=== PATIENT | female | born 1960 | race Caucasian/White ===

== ENCOUNTER 2022-08-11 11:26 | Outpatient (CLI) | payer BC, SELFPAY ==
[2022-08-11 11:03] LABS: Chloride* 102 mmol/L (96-114); Potassium* 4.2 mmol/L (3.6-5.1); Sodium* 138 mmol/L (135-149)
[2022-08-11 11:06] LABS: Blood Urea Nitrogen* 16 mg/dL (7-30); Carbon Dioxide* 29 mmol/L (20-32); Cholesterol* 182 mg/dL (90-199); Creatinine* 1.1 mg/dL (0.5-1.5); Estimated Glomerular Filt Rate 56 ml/min
[2022-08-11 11:07] LABS: Calcium* 9.1 mg/dL (8.4-10.6); Glucose* 96 mg/dL (60-115); HDL Cholesterol* 58 mg/dL (>=50); LDL Cholesterol Calculated 111 mg/dL (<100); Triglycerides* 67 mg/dL (40-149)
== END 2022-08-11 11:27 | disposition home or self-care (01) ==
PROVIDERS: PCP Internal Medicine; Visit Provider Internal Medicine
DX: E78.5 Hyperlipidemia, unspecified (principal); E21.3 Hyperparathyroidism, unspecified; E66.9 Obesity, unspecified; Z79.01 Long term (current) use of anticoagulants
CPT/HCPCS: 80048; 80061; 82310; 83970

== ENCOUNTER 2022-08-17 15:52 | Outpatient (CLI) | payer BC, SELFPAY ==
[2022-08-17 10:05] LABS: Creatinine Urine 91.1 mg/dL
[2022-08-17 10:08] LABS: Microalbumin Creatinine Ratio 10 mg/g (0-30); Microalbumin Urine < 1 mg/dL
[2022-08-17 10:53] LABS: Albumin* 3.8 g/dL (3.3-5.0)
[2022-08-17 10:54] LABS: Chloride* 101 mmol/L (96-114); Potassium* 3.9 mmol/L (3.6-5.1); Sodium* 137 mmol/L (135-149)
[2022-08-17 10:56] LABS: Aspartate Amino Transferase* 26 U/L (12-35); Blood Urea Nitrogen* 16 mg/dL (7-30); Carbon Dioxide* 31 mmol/L (20-32); Cholesterol* 177 mg/dL (90-199); Creatinine* 1.1 mg/dL (0.5-1.5); Estimated Glomerular Filt Rate 56 ml/min
[2022-08-17 10:57] LABS: Alanine Aminotransferase* 25 U/L (4-35); Calcium* 9.3 mg/dL (8.4-10.6); Glucose* 103 mg/dL (60-115); HDL Cholesterol* 56 mg/dL (>=50); LDL Cholesterol Calculated 101 mg/dL (<100); Phosphorus* 3.4 mg/dL (2.5-4.5); Triglycerides* 98 mg/dL (40-149); Uric Acid* 4.6 mg/dL (2.2-8.4)
[2022-08-20 06:28] LABS: 25-Hydroxyvitamin D2 < 1.0 ng/mL; 25-Hydroxyvitamin D2,D3 Total 29.5 ng/mL (30.0-80.0); 25-Hydroxyvitamin D3 29.5 ng/mL
[2022-08-26 16:39] LABS: Hours Collected 24 hr; Total Volume 2800 mL; Urine Supersaturation Interp Normal; pH, Urine 6.87 (5.00-7.50)
== END 2022-08-17 15:53 | disposition home or self-care (01) ==
PROVIDERS: PCP Internal Medicine; Visit Provider Internal Medicine Nephrology
DX: E21.3 Hyperparathyroidism, unspecified (principal); E78.5 Hyperlipidemia, unspecified; N20.9 Urinary calculus, unspecified; E66.9 Obesity, unspecified; N18.30 Chronic kidney disease, stage 3 unspecified; Z79.01 Long term (current) use of anticoagulants
CPT/HCPCS: 80061; 80069; 82043; 82306; 82310; 82340; 82436; 82507; 82570; 83735; 83945; 83970; 83986; 84105; 84133; 84300; 84392; 84450; 84460; 84550; 84560

== ENCOUNTER 2023-03-02 08:30 | Outpatient (CLI) | payer BC, SELFPAY | END 2023-03-02 08:31 | disposition home or self-care (01) | LOC: NFLDREF 03-03 09:15 | PROVIDERS: PCP Internal Medicine; Referring Provider Internal Medicine; Visit Provider Internal Medicine Nephrology | DX: E21.3 Hyperparathyroidism, unspecified (principal); E78.5 Hyperlipidemia, unspecified; N18.30 Chronic kidney disease, stage 3 unspecified; N20.9 Urinary calculus, unspecified | CPT/HCPCS: 80061; 80069; 82043; 82310; 82340; 82436; 82507; 82570; 83735; 83945; 83970; 83986; 84105; 84133; 84300; 84392; 84443; 84550; 84560 ==

== ENCOUNTER 2023-08-04 09:09 | Outpatient (CLI) | payer BC, SELFPAY | END 2023-08-04 09:10 | disposition home or self-care (01) | LOC: NFLDREF 08-13 11:31 | PROVIDERS: PCP Internal Medicine; Referring Provider Internal Medicine; Visit Provider Internal Medicine Nephrology | DX: E21.3 Hyperparathyroidism, unspecified (principal); E78.5 Hyperlipidemia, unspecified; N18.30 Chronic kidney disease, stage 3 unspecified; N20.9 Urinary calculus, unspecified; M81.0 Age-related osteoporosis without current pathological fracture | CPT/HCPCS: 80061; 80069; 82043; 82306; 82310; 82340; 82436; 82507; 82570; 83735; 83945; 83970; 83986; 84105; 84133; 84300; 84392; 84450; 84460; 84550; 84560 ==

== ENCOUNTER 2023-10-25 08:29 | Outpatient (CLI) | payer BC, SELFPAY | END 2023-10-25 08:30 | disposition home or self-care (01) | LOC: NFLDREF 10-27 07:20 | PROVIDERS: PCP Internal Medicine; Referring Provider Internal Medicine; Visit Provider Internal Medicine | DX: E78.5 Hyperlipidemia, unspecified (principal) | CPT/HCPCS: 80061 ==

== ENCOUNTER 2023-11-29 10:10 | Outpatient (CLI) | payer BC, SELFPAY ==
--- OUTSIDE RECORDS SUMMARY | 2023-12-01 06:34 | XMS_ITS | Referral Summary ---
Author Name Unknown Organization [facility] Address [address] [place] [address] Care Team Providers Care Industrial Eng Name Role Phone Unavailable Primary Care Provider Unavailabl e Source Comments Patient records contain information from all sites at [facility]. For routine questions regarding patient records, call [phone] during business hours, M-F 8:00 AM - 5:00 PM Central Time. Record requests for emergency care only can be directed to [phone] at any time.[facility] Encounters Date Type Department Care Team Description 09/29/2023 Refill Division of Nephrology and Hypertension in [place], [place] [address] [place] [address] Angel Zhu Jr., D.O. Med Refill 09/01/2023 Refill Division of Nephrology and Hypertension in [place], [place] [address] [place] [address] Angel Zhu Jr., D.O. Med Refill 08/31/2023 8:00 AM CDT External Outreach Division of Nephrology and Hypertension in [place], [place] [address] [place] [address] Angel Zhu Jr., D.O. Urolithiasis (Primary Dx); Hyperparathyroidism (HCC); Mutation Factor V Leiden Heterozygous (HCC); Elevated Blood Pressure from Last 3 Months Allergies Active Allergy Reactions Criticality Noted Date Comments Aspirin Other (see comments) 02/02/2019 On Blood thinner Ibuprofen Other (see comments) 12/10/2015 Kidney disease Ketorolac Other (see comments) 11/25/2015 KIdney disease Naproxen Other (see comments) 12/26/2015 Kidney dx Medications Medication Sig Dispensed Refills Start Date End Date Status cyanocobalamin (VITAMIN B12) 500 mcg SL tablet Take 1 tablet (500 mcg total) by mouth daily. 0 11/09/2018 Active cholecalciferol (VITAMIN D3) 50 mcg (2,000 Unit) tablet Take 2,000 Units by mouth daily. Wednesday, Wednesday, , Wednesday 0 Active Eliquis 5 mg tablet Take 5 mg by mouth 2 (two) times a day. 0 08/12/2021 Active atorvastatin (LIPITOR) 40 mg tablet TAKE ONE TABLET BY MOUTH AT BEDTIME 90 tablet 3 07/24/2022 Active acetaminophen (TYLENOL) 500 mg tablet Take 1,000 mg by mouth every 6 (six) hours as needed for pain. 0 Active oxyCODONE (ROXICODONE) 5 mg immediate release tabletIndications: Acute Pain Take 1 tablet (5 mg total) by mouth every 6 (six) hours as needed for pain Indication: Acute Pain. Not relieved by over the counter pain medications. 10 tablet 0 01/26/2023 Active sennosides-docusat e sodium (SENOKOT-S) 8.6-50 mg per tablet Take 1 tablet by mouth 2 (two) times a day as needed for constipation. While on narcotics. 0 01/26/2023 Active enoxaparin (LOVENOX) 40 mg/0.4 mL injection Inject 0.4 mL (40 mg total) under the skin daily for 3 days. 1.2 mL 0 01/26/2023 Active estradioL (VAGIFEM) 10 mcg vaginal tablet Insert 1 tablet into the vagina 2 times a week. 64 tablet 0 07/08/2023 02/06/2024 Active calcitRIOL (ROCALTROL) 0.25 mcg capsuleIndications :Hyperparathyroidi sm (HCC) TAKE 1 CAPSULE BY MOUTH EVERY WEDNESDAY, WEDNESDAY AND WEDNESDAY. 40 capsule 0 09/29/2023 Active Active Problems Problem Noted Date Diagnosed Date Elevated Blood Pressure 08/31/2023 Other Ovarian Cyst Left Side 11/18/2022 Overview: Added automatically from request for surgery [id number] Hypokalemia 09/01/2022 Urolithiasis 09/30/2021 Hydronephrosis With Renal An d Ureteral Calculous Obstruction 09/30/2021 Leukopenia 05/10/2019 Preanesthesia Medical Pretransplant Exam 019 Hyperparathyroidism 09/28/2018 Mutation Factor V Leiden Heterozygous 09/28/2018 Osteoporosis 04/18/2018 Arthritis Hip 12/10/2015 Hyperlipidemia 09/21/2010 Resolved Problems Problem Noted Date Diagnosed Date Resolved Date Leukopenia 03/15/2023 03/15/2023 Immunizations Name Administration Dates Next Due Influenza TIV (IM) 09/20/2012, 1,11/01/2006,2003 Influenza, Injectable, Quadrivalent 09/03/2015 Influenza, Seasonal, Injectable 09/20/20 12,09/17/2011,11/01/2006,2003 Influenza, Unspecified 08/02/2020 RZV (SHINGRIX) 12/04/2021,08/18/2021 SARS-COV-2 (COVID-19) - MODERNA 02/22/2021,01/25 Td (Adult), adsorbed 03/21/1998 Td Preservative Free (TENIVA C, DECAVAC) 08/02/2020 Tdap 03/05/2009 influenza vaccine QV(FLUBLOK ) (18 years or older) (PF) 08/02/2020,10/21/2018 influenza vaccine quad (FLUZONE/FLUARIX) (6 months and older)(PF) 10/29/2022,09/02/2021,10/13/2019,2016,10/06/2016 Social History Tobacco Use Types Packs/Day Years Used Date Smoking Tobacco: Former Cigarettes 0 8 0 07/23/1975 - 11/22/1982 Smokeless Tobacco: Never Tobacco Cessation:Counseling Given: Not Answered Alcohol Use Standard Drinks/Week Comments Yes 0 (1 standard drink = 0.6 oz pur e alcohol) maybe 5 times a year Humiliation, Afraid, Rape, and Kick questionnair e Answer Date Recorded Within the last year, have y ou been afraid of your partner or ex-partner? No 10/30/2022 Within the last year, have y ou been humiliated or emotionally abused in other ways by your partner or ex-partner? Patient declined 10/30/2022 Within the last year, have y ou been kicked, hit, slapped, or otherwise physically hurt by your partner or ex-partner? Patient declined 10/30/2022 Within the last year, have y ou been raped or forced to have any kind of sexual activity by your partner or ex-partner? No 10/30/2022 Social Connection and Isolation Panel [NHANES] A nswer Date Recorded In a typical week, how many times do you talk on the phone with family, friends, or neighbors? Patient declined 10/30/2022 How often do you get togethe r with friends or relatives? Patient declined 10/30/2022 How often do you attend yazidi or zoroastrianism serv ices? Patient declined 10/30/2022 Do you belong to any clubs o r organizations such as yazidi groups, unions, fraternal or athletic groups, or school groups? Yes 10/30/2022 How often do you attend meet ings of the clubs or organizations you belong to? Patient declined 10/30/2022 Are you , , di vorced, , never , or living with a partner? Patient declined 10/30/2022 AUDIT-C Answer Date Recorded Q1: How often do you have a drink containing alc ohol? Patient declined 10/30/2022 Average Number of Drinks Not on file 022 Frequency of Binge Drinking Not on file 07/2022 Overall Financial Resource Strain (CARDIA) Answe r Date Recorded How hard is it for you to pa y for the very basics like food, housing, medical care, and heating? Not hard at all 10/30/2022 [facility] of Occupat ional Health - Occupational Stress Questionnaire Answer Date Recorded Do you feel stress - tense, restless, nervous, or anxious, or unable to sleep at night because your mind is troubled all the time - these days? Not at all 10/30/2022 Exercise Vital Sign Answer Date Recorde d On average, how many days pe r week do you engage in moderate to strenuous exercise (like a brisk walk)? 0 days On average, how many minutes do you engage in exercise at this level? Patient declined 10/30/2022 Hunger Vital Sign Answer Date Recorded Within the past 12 months, y ou worried that your food would run out before you got the money to buy more. Patient declined Within the past 12 months, t he food you bought just didn't last and you didn't have money to get more. Patient declined 07/2022 PRAPARE - Transportation Answer Date Re corded In the past 12 months, has l ack of transportation kept you from medical appointments or from getting medications? Patient declined 10/30/2022 In the past 12 months, has l ack of transportation kept you from meetings, work, or from getting things needed for daily living? Patient declined 10/30/2022 Housing Stability Vital Sign Answer Phong e Recorded In the last 12 months, was t here a time when you were not able to pay the mortgage or rent on time? No 10/30/20 In the last 12 months, how many places have you lived? 1 10/30/2022 In the last 12 months, was t here a time when you did not have a steady place to sleep or slept in a nursing home (including now)? Patient refused 10/30/2022 Nutrition Answer Date Recorded Nutrition: EVOO Fat Source No 10/30 On average, how many serving s of fruits and vegetables do you eat per day (serving size is equal to 1 cup or approximately the size of a tennis ball)? 0-1 10/30/2022 Dental Answer Date Recorded Dental: Regular Dentist Yes 10/30/20 Employment Answer Date Recorded Employment status Retired 10/30/2022 Sex and Gender Information Value Date Recorded Sex Assigned at Female 12/09/2018 8:53 AM AUTOMOTIVE WORKER Gender Identity Female 12/09/2018 8:53 AM AUTOMOTIVE WORKER Sexual Orientation Straight 12/09/2018 8: 53 AM AUTOMOTIVE WORKER Last Filed Vital Signs Vital Sign Reading Time Taken Comments Blood Pressure 148/82 08/31/2023 8:11 AM CDT Pulse 71 08/31/2023 8:11 AM CDT Temperature 36.7 ??C (98.1 ??F) 01/26/2023 2:53 PM CS T Respiratory Rate 16 01/26/2023 4:40 PM AUTOMOTIVE WORKER Oxygen Saturation 94% 01/26/2023 4:40 PM AUTOMOTIVE WORKER Inhaled Oxygen Concentration - - Weight 114 kg (251 lb 15.8 oz) 08/31/2023 8:11 A M CDT Height 165 cm (5' 4.96) 03/15/2023 2:23 PM CDT Body Mass Index 41.98 03/15/2023 2:23 PM CDT Plan of Treatment Not on file Medical Devices Implanted Type Area Wrapper Stripper Device Identifier Shelf Expiration Date Model / Serial / Lot Hip Implant Hip Implant Bilateral : Hip Advance Directives For more information, please contact: [phone] Latest Code Status on File Code Status Date Activated Date Inactivated Comments Full Code 01/26/2023 8:36 AM 01/26/2023 6:49 PM Question Answer Comments Full Code: Discussed Code Status History Code Status Date Activated Date Inactivated Comments Full Code 02/02/2019 7:58 AM 02/02/2019 5:42 PM Question Answer Comments Full Code: Discussed
--- OUTSIDE RECORDS SUMMARY | 2023-12-01 06:34 | XMS_ITS | Encounter Summary ---
Author Name Unknown Organization [facility] Address [address] [place] [address] Care Team Providers Care Van Driver Name Role Phone Unavailable Primary Care Provider Unavailabl e Reason for Visit * Reason Comments Med Refill Encounter Details Date Type Department Care Team (Late st Contact Info) Description 09/29/2023 Refill Division of Nephrology and Hypertension in [place], [place] [address] [place] [address] Angel Zhu Jr., D.O. [address] [place] [address] Med Refill Social History Tobacco Use Types Packs/Day Years Used Date Smoking Tobacco: Former Cigarettes 0 8 0 07/23/1975 - 11/22/1982 Smokeless Tobacco: Never Alcohol Use Standard Drinks/Week Comments Yes 0 [...] declined 10/30/2022 How often do you attend latter-day or mandaen serv ices? Patient declined 10/30/2022 Do you belong to any clubs o r organizations such as latter-day groups, unions, fraternal or athletic groups, or [...] and heating? Not hard at all 10/30/2022 [facility] of Occupat ional Health - Occupational Stress [...] place to sleep or slept in a intermediate (including now)? Patient refused 10/30/2022 Nutrition Answer [...] Sex Assigned at Female 12/09/2018 8:53 AM COUNTER CHECKER Gender Identity Female 12/09/2018 8:53 AM COUNTER CHECKER Sexual Orientation Straight 12/09/2018 8: 53 AM COUNTER CHECKER documented as of this encounter Plan of Treatment Not on file documented as of this encounter Visit Diagnoses Diagnosis Hyperparathyroidism (HCC) documented in this encounter
--- OUTSIDE RECORDS SUMMARY | 2023-12-01 06:34 | XMS_ITS ---
Author Name Unknown Organization [facility] Address [address] [place] [address] Care Team Providers Care Nursery Laborer Name Role Phone Unavailable Unavailable Unavailable Surgery Details Not on file Complications Check Surgery Details section. Procedure Estimated Blood Loss Check Surgery Details section. Procedure Findings Check Surgery Details section. Procedure Specimens Taken Check Surgery Details section.
--- OUTSIDE RECORDS SUMMARY | 2023-12-01 06:34 | XMS_ITS | Clinical Summary ---
Author Name Unknown Organization [facility] Address [address] [place] [address] Care Team Providers Care Chapter Relations Administrator Name Role Phone Unavailable Primary Care Provider Unavailabl e Source Comments Patient records contain information from all sites at [facility]. For routine questions regarding patient records, call [phone] during business hours, M-F 8:00 AM - 5:00 PM Central Time. Record requests for emergency care only can be directed to [phone] at any time.[facility] Allergies Active Allergy Reactions Criticality Noted Date [...] Overview: Added automatically from request for surgery [id number] Hypokalemia 09/01/2022 Urolithiasis 09/30/2021 Hydronephrosis With Renal An d Ureteral Calculous Obstruction 09/30/2021 Leukopenia 05/10/2019 Preanesthesia Medical Pretransplant Exam 019 Hyperparathyroidism 09/28/2018 Mutation Factor V Leiden Heterozygous 09/28/2018 Osteoporosis 04/18/2018 Arthritis Hip 12/10/2015 Hyperlipidemia 09/21/2010 Resolved Problems Problem Noted Date Diagnosed Date Resolved Date Leukopenia 03/15/2023 03/15/2023 Encounters Date Type Department Care Team Description 09/29/2023 Refill Division of Nephrology and Hypertension in [place], [place] [address] [place] [address] Angel Zhu Jr., D.O. Med Refill 09/01/2023 Refill Division of Nephrology and Hypertension in [place], [place] [address] [place] [address] Angel Zhu Jr., D.O. Med Refill 08/31/2023 8:00 AM CDT External Outreach Division of Nephrology and Hypertension in [place], [place] [address] [place] [address] Angel Zhu Jr., D.O. Urolithiasis (Primary Dx); Hyperparathyroidism (HCC); Mutation Factor V Leiden Heterozygous (HCC); Elevated Blood Pressure from Last 3 Months Immunizations Name Administration Dates Next Due Influenza TIV (IM) 09/20/2012, 1,11/01/2006,2003 Influenza, Injectable, Quadrivalent 09/03/2015 Influenza, Seasonal, Injectable 09/20/20 12,09/17/2011,11/01/2006,2003 Influenza, Unspecified 08/02/2020 RZV (SHINGRIX) 12/04/2021,08/18/2021 SARS-COV-2 (COVID-19) - MODERNA 02/22/2021,01/25 Td (Adult), adsorbed 03/21/1998 Td Preservative Free (TENIVA C, DECAVAC) 08/02/2020 Tdap 03/05/2009 influenza vaccine QV(FLUBLOK ) (18 years or older) (PF) 08/02/2020,10/21/2018 influenza vaccine quad (FLUZONE/FLUARIX) (6 months and older)(PF) 10/29/2022,09/02/2021,10/13/2019,2016,10/06/2016 Family History Medical History Relation Name Comments Clotting disorder Father Franklyn Colon polyps Father Franklyn Hyperlipidemia Father Franklyn Hypertension Father Franklyn Stroke Father Franklyn Transient ischemic attack Father Franklyn Tuberculosis Father Franklyn Obesity Mother Mom Ovarian cancer Sister 1 Clotting disorder Sister 2 Loree Colon polyps Sister 2 Loree Hyperlipidemia Sister 2 Loree Ovarian cancer Sister 2 Loree 60 years of a ge Relation Name Status Comments Father Franklyn Mother Mom Sister 1 Sister 2 Loree Social History Tobacco Use Types Packs/Day Years [...] declined 10/30/2022 How often do you attend episcopalian or restorationism serv ices? Patient declined 10/30/2022 Do you belong to any clubs o r organizations such as episcopalian groups, unions, fraternal or athletic groups, or [...] and heating? Not hard at all 10/30/2022 [facility] [place] of Occupat ional Health - Occupational Stress [...] mortgage or rent on time? No 10/30/20 22 In the last 12 months, how many places have you lived? 1 10/30/2022 In the last 12 months, was t here a time when you did not have a steady place to sleep or slept in a fpc (including now)? Patient refused 10/30/2022 Nutrition Answer [...] Sex Assigned at Female 12/09/2018 8:53 AM RECLAMATION KETTLE TENDER Gender Identity Female 12/09/2018 8:53 AM RECLAMATION KETTLE TENDER Sexual Orientation Straight 12/09/2018 8: 53 AM RECLAMATION KETTLE TENDER Last Filed Vital Signs Vital Sign Reading Time Taken Comments Blood Pressure 148/82 08/31/2023 8:11 AM CDT Pulse 71 08/31/2023 8:11 AM CDT Temperature 36.7 ??C (98.1 ??F) 01/26/2023 2:53 PM CS T Respiratory Rate 16 01/26/2023 4:40 PM RECLAMATION KETTLE TENDER Oxygen Saturation 94% 01/26/2023 4:40 PM RECLAMATION KETTLE TENDER Inhaled Oxygen Concentration - - Weight 114 kg (251 lb 15.8 oz) 08/31/2023 8:11 A M CDT Height 165 cm (5' 4.96) 03/15/2023 2:23 PM CDT Body Mass Index 41.98 03/15/2023 2:23 PM CDT Plan of Treatment Health Maintenance Due Date Last Done Comments CT Colonography 1959 Cologuard 1959 Colonoscopy 1959 Colorectal Cancer Surveillance 1960 HIV Screening 1959 Hepatitis C Screening 1959 Mammogram 1959 Cervical Cancer Screening 10/21/2021 10/21/2018 Depression Screening (Annual PHQ-2) 11/22/2022 Fasting Glucose for Diabetes Screening 08/08/2023 08/08/2020, 12/09/2018 Lipid (Cholesterol) Screening 08/08/2025 08/08/2020, 06/08/2019 DTaP,Tdap,and Td Vaccines (3 - Td or Tdap) 08/02/2030 08/02/2020, 03/05/2009, 03/21/1998 Zoster Vaccines Completed 12/04/2021, 08/18/2021 Influenza Vaccine Completed 09/16/2023, , 09/02/2021, Additional history exists COVID-19 Vaccine Completed 10/28/2023, 06/2022, 10/17/2021, Additional history exists Pneumococcal vaccine (0-64 years) Aged Out No longer eligible based on patient's age to complete this topic Medical Devices Implanted Type Area Schedule Manager Device Identifier Shelf Expiration Date Model / Serial / Lot Hip Implant Hip Implant Bilateral : Hip Advance Directives For more information, please contact: [phone] Latest Code Status on File Code Status Date Activated Date Inactivated Comments Full Code 01/26/2023 8:36 AM 01/26/2023 6:49 PM Question Answer Comments Full Code: Discussed Code Status History Code Status Date Activated Date Inactivated Comments Full Code 02/02/2019 7:58 AM 02/02/2019 5:42 PM Question Answer Comments Full Code: Discussed
--- OUTSIDE RECORDS SUMMARY | 2023-12-01 06:35 | XMS_ITS | Encounter Summary ---
Author Name Unknown Organization [facility] Address [address] [place] [id number] Care Team Providers [facility] [employer] Team Leader Name Role Phone Unavailable Primary Care Provider Unavailabl e Reason for Visit * Auth/Cert (Routine) Specialty Diagnoses / Procedures Referred By Jazz xiao Referred To Contact Diagnoses Other Ovarian Cyst Left Side Other Ovarian Cyst Left Side [N83.292] Procedures [place] LAPAROSCOPY W RMVL ADNEXA OPERATIVE LAPAROSCOPY LAPAROSCOPIC SALPINGO-OOPHORECTOMY Referral ID Status Reason Start Date Expiration Date Visits Re quested Visits Authorized [id number] 1 1 Encounter Details Date Type Department Care Team (Late st Contact Info) Description 01/26/2023 10:54 AM DAIRY DEPARTMENT MANAGER Anesthesia Event [facility] [address] [place] [phone] Taras Gomez M.D. [address] [place] [phone] Leigh Pérez, RChrisNChris [address] [place] [phone] Anesthesia Record Procedure Summary Procedure Name Responsible Anesthesiologist Anesthesia Start Time Anesthesia Stop Time OPERATIVE LAPAROSCOPY. Taras Gomez M.D. 01/26/23 1054 01/26/23 1336 Events Date Time Event Comment 01/26/2023 1027 1054 An Start Machine/Equipme nt Checked Infection Precautions Followed Procedure/Site Verified NPO Status Verified Supine Standard ASA Monitors Applied 1100 An Induction 1102 An Intubation 1105 Turnover to Proceduralist 1142 Proc Start 1152 Gas Insufflation 1156 Gas Insufflation 1258 Proc Fin 1315 Turnover to ANE Staff 1322 Airway Removal Criteria Met 1323 Extubation/Airway Removed 1323 an stop data 1336 An End I completed my handoff to the receiving staff during which we 1. Identified the patient 2. Identified the responsible provider 3. Reviewed the pertinent medical history 4. Discussed the surgical course 5. Reviewed intra-op anesthesia management and issues during anesthesia 6. Set expectations for post-procedure period 7. Allowed opportunity for questions and acknowledgement of understanding. Meds Name Total fentanyl injection 50 mcg/mL 150 mcg lidocaine 2% (mg) injection 60 mg propofol 10 mg/mL 240 mg propofol 10 mg/mL infusion 1,456.84 mg rocuronium 10 mg/mL injection 80 mg succinylcholine 20 mg/mL injection 120 m g phenylephrine 100 mcg/mL injection 150 m cg ondansetron 4 mg/2 mL injection 4 mg sugammadex 100 mg/mL injection 260 mg glycopyrrolate 0.2 mg/mL injection 0.4 m g ceFAZolin injection 3,000 mg (ANCEF) 3 g dexamethasone 4 mg/mL injection 4 mg heparin (porcine) injection 7,500 Units 7,500 Units Lactated Ringers Free Drip 1,000 mL * Agents No agents on file. * Blood No blood administrations on file. Lines, Drains, and Airways Type Details Placement Removal Scope Sites 01/26/23; Abdomen; 1 ; Right; 2; Umbilicus; 3; Left, Mid; 4; Left; dermabond 01/26/23 0000 by Dominique Bah, R.N. Indwelling Urinary Catheter Placement Date: 01/26/23; Inserted by: Dominique Bah; Type: Non-latex; Size: 16 Fr.; Balloon Size: 5 mL (10cc in balloon); Urine Returned: Yes; Removal Date: 01/26/23; Removal Time: 1550; Removal Reason: Per order 01/26/23 0000 by Dominique Bah, R.NChris 01/26/23 1550 by Nguyen Yoo Peripheral IV Placement Date: 06/13; Placement Time: 0847; Catheter Size: 18 G; Orientation: Left; Location: Antecubital; Site Prep: Chlorhexidine (Preferred); Inserted by: heb; Insertion Attempts: 1; Removal Date: 01/26/23; Removal Time: 1612; Removal Reason: Per order 01/26/23 0847 by Talisha Watt 01/26/23 1612 by Rubi Alberts ETT Placement Date: 06/13; Placement Time: 110 (created via procedure documentation); Mask Ventilation: Not attempted; Type: Standard ETT; Single Lumen Tube Size: 7 mm; Cuffed: Yes; Location: Oral; Grade View: Grade 1; Insertion Attempts: 1; Placement Verification: Bilateral breath sounds, Positive ETCO2, Symmetrical chest wall movement; Airway Comment: RSI, no aspiration noted, HOB up; Removal Date: 01/26/23; Removal Time: 13201/26/23 1102 by Leigh Pérez R.N. 01/26/23 1323 by Leigh Pérez R.N. NG/OG Tube 01/26/23; 1104; Orogastric; 16 Fr; Oral; 01/26/23; 1322 01/26/23 1104 by Amy Douglas APRN, CRNA 01/26/23 1322 by Leigh Pérez RChrisN. documented in this encounter Social History Tobacco Use Types Packs/Day Years [...] declined 10/30/2022 How often do you attend alevism or adventist serv ices? Patient declined 10/30/2022 Do you belong to any clubs o r organizations such as alevism groups, unions, fraternal or athletic groups, or [...] and heating? Not hard at all 10/30/2022 [facility] - Occupational Stress [...] place to sleep or slept in a halfway (including now)? Patient refused 10/30/2022 Nutrition Answer [...] Sex Assigned at Female 12/09/2018 8:53 AM DAIRY DEPARTMENT MANAGER Gender Identity Female 12/09/2018 8:53 AM DAIRY DEPARTMENT MANAGER Sexual Orientation Straight 12/09/2018 8: 53 AM DAIRY DEPARTMENT MANAGER documented as of this encounter OR Notes * Anesthesia Postprocedure Evaluation - Quentin Rodrigues M.B., B.Ch., B.A.O. - 01/26/2023 2:25 PM CST Patient: Lisset Garza-Turner Procedure Summary Date: 01/26/23 Room / Location: [place] [id number] / [facility] in [place], [place] Anesthesia Start: 1054 Anesthesia Stop: 1336 Procedures: OPERATIVE LAPAROSCOPY. LAPAROSCOPIC SALPINGO-OOPHORECTOMY. (Bilateral) Diagnosis: Other Ovarian Cyst Left Side (Other Ovarian Cyst Left Side [N83.292].) Providers: Cele Bach M.D. Responsible Provider: Taras Gomez M.D. Anesthesia Type: general ASA Status: 3 Anesthesia Type: general Last vitals Vitals Value Taken Time BP 139/85 01/26/23 1415 Temp 36.5 ??C 01/26/23 1330 Pulse 69 01/26/23 1425 Resp 15 01/26/23 1425 SpO2 92 % 01/26/23 1425 Vitals shown include unvalidated device data. Please reference Vitals flowsheet for most recent vital signs. Anesthesia Post Evaluation Patient Disposition: dismissal Cardiovascular status: hemodynamics (HR & BP) acceptable Respiratory status: patent airway with spontaneous effort Temperature: normothermic Oxygen requirements: room air Level of consciousness: awake Pain score: pain adequately controlled and/or at baseline Post Op nausea/vomiting: none Hydration status: euvolemic Y DEPARTMENT MANAGER * Anesthesia Procedure Notes - Leigh Pérez R.N. - 01/26/2023 11:22 AM DAIRY DEPARTMENT MANAGER Associated Order(s): Airway Airway Date/Time: 01/26/2023 11:02 AM Performed by: Leigh Pérez R.N. Authorized by: Taras Gomez M.D. Patient location during procedure: OR / Procedure Area PROCEDURE DETAILS: Mask difficulty assessment: not attempted Final airway type: video laryngoscope Laryngeal Manipulation: no Final best view of glottic structures - Cormack/Lehane Score: grade 1 ETT location: oral VL device: glide scope Ada scope blade size: 3 Adult tube size: 7 Adult ETT distance at teeth/gum: 22 Oral tube type: standard ETT Cuffed: yes Number of attempt to successful placement: 1 Airway confirmation: bilateral breath sounds, positive ETCO2 and bilateral chest rise Additional Comments RSI, no aspiration noted, HOB up PRE PROCEDURE DETAILS: Pre evaluation for airway management: procedure Urgency: elective Preop assessment of probable difficulty: no difficulty anticipated Preoxygenation: bag valve mask SEDATION / ANESTHESIA Anesthesia method: none POST PROCEDURE DETAILS: Procedure outcome: successful Airway event: no complications Y DEPARTMENT MANAGER * Anesthesia Preprocedure Evaluation - Taras Gomez M.D. - 01/26/2023 10:13 AM CST Preprocedure Anesthesia & H&P Assessment Procedure Summary Date/Time: 01/26/23 1017 Procedures: OPERATIVE LAPAROSCOPY. LAPAROSCOPIC SALPINGO-OOPHORECTOMY. (Bilateral) Diagnosis: Other Ovarian Cyst Left Side [N83.292] Pre-op diagnosis: Other Ovarian Cyst Left Side [N83.292]. Location: [address] [facility] / [facility] in [place], [place] Providers: Cele Bach M.D. Pertinent components of the patient's history including current problem list, medical history, surgical history, family history, social history, medications and allergies were reviewed. Present illness and pre-op diagnosis were confirmed. The planned surgery / procedure was verified with the patient / legal guardian. The patient's general health condition remains unchanged RELEVANT COMORBID CONDITIONS GENETICS (+) Hyperlipidemia (+) Hypokalemia Other (+) Arthritis Hip OBJECTIVE PHYSICAL EXAMINATION Airway (HEENT) Mallampati: I TM Distance: >3 FB Neck ROM: Full Mouth Opening: >3 cm Upper Lip Bite Test Class: I Cardiovascular Rhythm: Regular Rate: Normal Cardiovascular Assessment: cardiovascular normal Functional Capacity: >4 METS Pulmonary Pulmonary Assessment: Clear General / Constitutional Constitutional Assessment: Normal General State of Health:: healthy appearing and calm ASSESSMENT / PLAN ANESTHESIA PLAN ASA: 3 Anesthesia Plan: general Patient seen and allergies reviewed, anesthesia plan and risks discussed directly with patient /legal guardian or through an applications coordinator. The use of blood products not discussed Approval to Proceed: approved for anesthesia Y DEPARTMENT MANAGER documented in this encounter Plan of Treatment Not on file documented as of this encounter Procedures Procedure Name Priority Date/Time Associated Diagnosis Comments LDA ANE ENDOTRACHEAL AIRWAY Routine 01/26/2023 11:02 AM DAIRY DEPARTMENT MANAGER documented in this encounter Results * LDA ANE ENDOTRACHEAL AIRWAY (01/26/2023 11:02 AM DAIRY DEPARTMENT MANAGER) Narrative Leigh Pérez R.N. - 01/26/2023 11:02 AM DAIRY DEPARTMENT MANAGER Leigh Pérez R.N. ? 01/26/2023 12:43 PM Airway Date/Time: 01/26/2023 11:02 AM Performed by: Leigh Pérez R.N. Authorized by: Taras Gomez M.D. Patient location during procedure: OR / Procedure Area PROCEDURE DETAILS: Mask difficulty assessment: not attempted Final airway type: video laryngoscope Laryngeal Manipulation: no ?? Final best view of glottic structures - Cormack/Lehane Score: grade 1 ETT location: oral VL device: glide scope Ada scope blade size: 3 Adult tube size: 7 Adult ETT distance at teeth/gum: 22 Oral tube type: standard ETT Cuffed: yes Number of attempt to successful placement: 1 Airway confirmation: bilateral breath sounds, positive ETCO2 and bilateral chest rise Additional Comments RSI, no aspiration noted, HOB up ?? PRE PROCEDURE DETAILS: Pre evaluation for airway management: procedure Urgency: elective Preop assessment of probable difficulty: no difficulty anticipated Preoxygenation: bag valve mask SEDATION / ANESTHESIA Anesthesia method: none POST PROCEDURE DETAILS: ? Procedure outcome: successful ?? Airway event: no complications Taras Gomez M.D. ANESTHESIA ORDERA BLES documented in this encounter Visit Diagnoses Not on filedocumented in this encounter Administered Medications Inactive Administered Medications - up to 3 most recent administrations Medication Order MAR Action Action Date Dose Rate Site ceFAZolin injection 3,000 mg (ANCEF) 3,000 mg (25 mg/kg ? 120 kg Dosing weight), intravenous, Once, On Wed01/26/23 at 1045, For 1 dose, Intra-Op, Preoperatively within 1 hour prior to surgical incision If needed, reconstitute vial per package insert instructions. See IVAG for administration guidelines. , Drug Monitoring Program: Pharmacist to adjust medication dosing based on indication and drug clearance factors., Indications: Prophylaxis, surgical Given 01/26/2023 11:15 AM DAIRY DEPARTMENT MANAGER 3 g dexAMETHasone injection (DECADRON) intravenous, As needed, Starting on Wed01/26/23 at 1116, Anesthesia Intra-op Given 01/26/2023 11:16 AM DAIRY DEPARTMENT MANAGER 4 mg fentaNYL injection (SUBLIMAZE) intravenous, As needed, Starting on Wed01/26/23 at 1100, Anesthesia Intra-op Given 01/26/2023 11:42 AM DAIRY DEPARTMENT MANAGER 50 mcg Given 01/26/2023 11:00 AM DAIRY DEPARTMENT MANAGER 100 mcg glycopyrrolate injection (ROBINUL) intravenous, As needed, Starting on Wed01/26/23 at 1154, Anesthesia Intra-op Given 01/26/2023 11:55 AM DAIRY DEPARTMENT MANAGER 0.2 mg Given 01/26/2023 11:53 AM DAIRY DEPARTMENT MANAGER 0.2 mg heparin (porcine) injection 7,500 Units 7,500 Units, subcutaneous, Once, On Wed01/26/23 at 1045, For 1 dose, Intra-Op, Administer prior to induction of anesthesia. Given 01/26/2023 11:32 AM DAIRY DEPARTMENT MANAGER 7,500 Units lactated ringers intravenous, Continuous Infusion: Per Instructions PRN, Starting on Wed01/26/23 at 1055, Anesthesia Intra-op New Bag 01/26/2023 1:05 PM DAIRY DEPARTMENT MANAGER New Bag 01/26/2023 10:55 AM DAIRY DEPARTMENT MANAGER lidocaine (PF) (cardiac) injection intravenous, As needed, Starting on Wed01/26/23 at 1100, Anesthesia Intra-op Given 01/26/2023 11:00 AM DAIRY DEPARTMENT MANAGER 60 mg ondansetron (PF) injection (ZOFRAN) intravenous, As needed, Starting on Wed01/26/23 at 1244, Anesthesia Intra-op Given 01/26/2023 12:44 PM DAIRY DEPARTMENT MANAGER 4 mg phenylephrine injection intravenous, As needed, Starting on Wed01/26/23 at 1115, Anesthesia Intra-op Given 01/26/2023 12:27 PM DAIRY DEPARTMENT MANAGER 100 mcg Given 01/26/2023 11:15 AM DAIRY DEPARTMENT MANAGER 50 mcg propofol 10 mg/mL infusion (DIPRIVAN) intravenous, Continuous Infusion: Per Instructions PRN, Starting on Wed01/26/23 at 1100, Anesthesia Intra-op Rate/Dose Change 01/26/2023 12:28 PM DAIRY DEPARTMENT MANAGER 50 mcg/kg/min 36.12 mL/hr Rate/Dose Change 01/26/2023 11:55 AM DAIRY DEPARTMENT MANAGER 100 mcg/kg/min 72 .24 mL/hr Rate/Dose Change 01/26/2023 11:47 AM DAIRY DEPARTMENT MANAGER 125 mcg/kg/min 90 .3 mL/hr propofoL injection (DIPRIVAN) intravenous, As needed, Starting on Wed01/26/23 at 1100, Anesthesia Intra-op Given 01/26/2023 11:04 AM DAIRY DEPARTMENT MANAGER 40 mg Given 01/26/2023 11:00 AM DAIRY DEPARTMENT MANAGER 200 mg rocuronium injection (ZEMURON) intravenous, As needed, Starting on Wed01/26/23 at 1104, Anesthesia Intra-op Given 01/26/2023 12:32 PM DAIRY DEPARTMENT MANAGER 10 mg Given 01/26/2023 11:59 AM DAIRY DEPARTMENT MANAGER 20 mg Given 01/26/2023 11:28 AM DAIRY DEPARTMENT MANAGER 20 mg succinylcholine (PF) injection (ANECTINE) intravenous, As needed, Starting on Wed01/26/23 at 1100, Anesthesia Intra-op Given 01/26/2023 11:00 AM DAIRY DEPARTMENT MANAGER 120 mg sugammadex injection (BRIDION) intravenous, As needed, Starting on Wed01/26/23 at 1310, Anesthesia Intra-op Given 01/26/2023 1:10 PM DAIRY DEPARTMENT MANAGER 260 mg documented in this encounter
--- OUTSIDE RECORDS SUMMARY | 2023-12-01 06:35 | XMS_ITS | Encounter Summary ---
Author Name Unknown Organization [facility] Address [address] [place] [address] Care Team Providers Care Balance Wheel Arm Burnisher Name Role Phone Unavailable Primary Care Provider Unavailabl e Reason for Visit * Auth/Cert (Routine) Specialty Diagnoses / Procedures Referred By Jazz xiao Referred To Contact Diagnoses Other Ovarian Cyst Left Side Other Ovarian Cyst Left Side [N83.292] Procedures [place] LAPAROSCOPY W RMVL ADNEXA OPERATIVE LAPAROSCOPY LAPAROSCOPIC SALPINGO-OOPHORECTOMY Referral ID Status Reason Start Date Expiration Date Visits Re quested Visits Authorized [id number] 1 1 Encounter Details Date Type Department Care Team (Latest Contact Info) Description 01/26/2023 8:31 AM TOOL DISPATCHER - 01/26/2023 4:48 PM TOOL DISPATCHER Hospital Encounter Outpatient Surgery Unit in [place], [place] [address] [place] [address] Cele Bach M.D. [address] [place] [address] Other Ovarian Cyst Left Side; Other Ovarian Cyst Left Side Discharge Disposition: Home or Self Care Social History Tobacco Use Types Packs/Day Years [...] declined 10/30/2022 How often do you attend baptism or taoist serv ices? Patient declined 10/30/2022 Do you belong to any clubs o r organizations such as baptism groups, unions, fraternal or athletic groups, or [...] and heating? Not hard at all 10/30/2022 [facility] Occupat ional Health - Occupational Stress [...] place to sleep or slept in a care home (including now)? Patient refused 10/30/2022 Nutrition [...] Sex Assigned at Female 12/09/2018 8:53 AM TOOL DISPATCHER Gender Identity Female 12/09/2018 8:53 AM TOOL DISPATCHER Sexual Orientation Straight 12/09/2018 8: 53 AM TOOL DISPATCHER documented as of this encounter Last Filed Vital Signs Vital Sign Reading Time Taken Comments Blood Pressure 137/85 01/26/2023 4:40 PM TOOL DISPATCHER Pulse 80 01/26/2023 4:40 PM TOOL DISPATCHER Temperature 36.7 ??C (98.1 ??F) 01/26/2023 2:53 PM CS T Respiratory Rate 16 01/26/2023 4:40 PM TOOL DISPATCHER Oxygen Saturation 94% 01/26/2023 4:40 PM TOOL DISPATCHER Inhaled Oxygen Concentration - - Weight 120 kg (265 lb 6.9 oz) 01/26/2023 9:08 AM TOOL DISPATCHER Height 161 cm (5' 3.39) 01/26/2023 9:08 AM TOOL DISPATCHER Body Mass Index 46.45 01/26/2023 9:08 AM TOOL DISPATCHER documented in this encounter Discharge Instructions * Attachments The following attachments cannot be sent through Care Everywhere. * Your Scopolamine Patch (Cypriot) documented in this encounter Medications at Time of Discharge Medication Sig Dispensed Refills Start Date End Date acetaminophen (TYLENOL) 500 mg tablet Take 1,000 mg by mouth every 6 (six) hours as needed for pain. 0 atorvastatin (LIPITOR) 40 mg tablet TAKE ONE TABLET BY MOUTH AT BEDTIME 90 tablet 3 07/24/2022 cholecalciferol (VITAMIN D3) 50 mcg (2,000 Unit) tablet Take 2,000 Units by mouth daily. Wednesday, Wednesday, , Wednesday 0 cyanocobalamin (VITAMIN B12) 500 mcg SL tablet Take 1 tablet (500 mcg total) by mouth daily. 0 11/09/2018 Eliquis 5 mg tablet Take 5 mg by mouth 2 (two) times a day. 0 08/12/2021 enoxaparin (LOVENOX) 40 mg/0.4 mL injection Inject 0.4 mL (40 mg total) under the skin daily for 3 days. 1.2 mL 0 01/26/2023 oxyCODONE (ROXICODONE) 5 mg immediate release tabletIndications:Acut e Pain Take 1 tablet (5 mg total) by mouth every 6 (six) hours as needed for pain Indication: Acute Pain. Not relieved by over the counter pain medications. 10 tablet 0 01/26/2023 sennosides-docusate sodium (SENOKOT-S) 8.6-50 mg per tablet Take 1 tablet by mouth 2 (two) times a day as needed for constipation. While on narcotics. 0 01/26/2023 calcitRIOL (ROCALTROL) 0.25 mcg capsuleIndications:Hyp erparathyroidism (HCC) TAKE 1 CAPSULE BY MOUTH EVERY WEDNESDAY, WEDNESDAY AND WEDNESDAY. 40 capsule 3 01/23/2022 02/09/2023 estradioL (VAGIFEM) 10 mcg vaginal tablet Insert 1 tablet (10 mcg total) into the vagina 2 (two) times a week. 24 tablet 3 02/12/2022 03/31/2023 documented as of this encounter OR Notes * Op Note - Cele Bach M.D. - 01/26/2023 11:42 AM CST Pre-op Diagnosis Other Ovarian Cyst Left Side Post-op Diagnosis Other Ovarian Cyst Left Side Findings Simple left paratubal cyst and normal bilateral ovaries Complications None Description of Procedure The patient was prepped and draped in the supine position. After sterile prep and drape, a 10-mm periumbilical skin incision was made and carried through the fascia using an open laparoscopic technique. A 10-mm Mary trocar was placed and pneumoperitoneum created. We visually inspected the pelvis and abdomen which revealed a normal abdomen and a left simple cyst that appeared to be coming off of the fallopian tube. Under direct vision, bilateral 5-mm ports and a left paramedian port were then placed. We began with the right adnexal structures. We divided the right round ligament and entered the retroperitoneum laterally, identified the ureter, and ligated and divided the blood supply to the ovaries using the LigaSure We then completely dissected the right adnexal structures off of the peritoneum and ligated and divided the utero-ovarian ligament. The same procedure was performed on the left side. The adnexal structures (bilateral tubes and ovaries) were retrieved from the pelvis using an Endobag. Frozen section revealed benign findings, and the procedure was terminated. Hemostasis was confirmed and all ports removed. The periumbilical incision was closed with running 1-0 Vicryl. All skin incisions were closed with subcuticular 3-0 Monocryl. The patient was taken to recovery in stable condition. Cele Bach M.D. DISPATCHER documented in this encounter Plan of Treatment Not on file documented as of this encounter Procedures Procedure Name Priority Date/Time Associated Diagnosis Comments ADULT OXYGEN THERAPY Routine 01/26/2023 1:37 PM TOOL DISPATCHER SURGICAL PATHOLOGY, [facility] LAB Routine 01/26/2023 12:20 PM TOOL DISPATCHER Other Ovarian Cyst Left Side LAPAROSCOPIC SALPINGO-OOPHORECTOMY 01/26/2023 10:24 AM TOOL DISPATCHER Other Ovarian Cyst Left Side OPERATIVE LAPAROSCOPY 01/26/2023 10:24 AM TOOL DISPATCHER Other Ovarian Cyst Left Side documented in this encounter Results * Surgical Pathology, [facility]zen Lab (01/26/2023 12:20 PM TOOL DISPATCHER) 01/28/2023 2:24 PM TOOL DISPATCHER METH Participated in the Interpretation Jeanette Bolaños M.D. -Pathology Fellow Yuko ManleyS. -Pathology Resident 01/28/2023 2:24 PM TOOL DISPATCHER METH Report electronically signed by Annette Kerr M.D. I verify that I have examined all relevant slides/materi als for the specimen(s) and rendered or confirmed the diagnosis. 01/28/2023 2:24 PM TOOL DISPATCHER METH Frozen Intraoperative Report A. ??Fallopian tube and ovary, left, salpingo-ooph orectomy: Serous cystadenofibr vanna. ??Paratubal cyst. ??Benign fallopian tube. B. ??Fallopian tube and ovary, right, salpingo-ooph orectomy: Serous cystadenofibr vanna. ??Benign fallopian tube. Signed by Annette Kerr M.D. 01/26/2023 3:55 PM 01/28/2023 2:24 PM TOOL DISPATCHER METH Gross Description A. ??Received fresh labeled left fallopian tube and left ovary is a 24.8 gram, 4 x 2 x 1.0 cm ovary with 4.5 x 0.6 cm fallopian tube. ??The ovary has a smooth outer surface and solid cut surface. ??The fallopian tube has multiple paratubal cysts. ??Representat toni tissue submitted for frozen and permanent sections. ??Grossed by Margoth ChapaH.Jami, PA([facility]). B. ??Received fresh labeled right fallopian tube and right ovary is a 14.3 gram, 2.9 x 2.6 x 2.2 cm ovary with 7.2 x 0.8 cm fallopian tube. ??The ovary has a smooth outer surface and cystic/calcif ied cut surface. ??The fallopian tube has a 0.3 cm paratubal cyst. ??Representat toni tissue submitted for frozen and permanent sections. ??Grossed by Nicole Waddell M.S., P.A.([facility]). 01/28/2023 2:24 PM TOOL DISPATCHER METH Block Summary A Left fallopian tube and left ovary A1 Left ovary -frozen A2 Left fallopian tube 1 -frozen A3 Left fallopian tube 2 -frozen A4 Left fallopian paratubal cyst -frozen B Right fallopian tube and right ovary B1 Right ovary - frozen B2 Right fallopian tube - frozen B3 Right fimbria - frozen 01/28/2023 2:24 PM TOOL DISPATCHER METH Interpretation FINAL DIAGNOSIS A. ??Fallopian tube and ovary, left, salpingo-ooph orectomy: Hyalinized fibroma. ??Paratubal cyst. ??Benign fallopian tube. B. ??Fallopian tube and ovary, right, salpingo-ooph orectomy: Serous cystadenofibr vanna. ??Benign fallopian tube. 01/28/2023 2:24 PM TOOL DISPATCHER METH Tissue (Ovary, Left) 01/26/2023 12:20 PM TOOL DISPATCHER Tissue (Ovary, Right) 01/26/2023 12:40 PM TOOL DISPATCHER Cele Bach M.D. LAB SURG PATH ORDERA NHAN Performing Organization Address City/State/[facility] Co de Phone Number [place] [address] [place] [address], [facility] METH [facility] [address] [place] [address] documented in this encounter Visit Diagnoses Diagnosis Other Ovarian Cyst Left Side- Primary documented in this encounter Admitting Diagnoses Diagnosis Other Ovarian Cyst Left Side documented in this encounter Administered Medications Inactive Administered Medications - up to 3 most recent administrations Medication Order MAR Action Action Date Dose Rate Site acetaminophen tablet 1,000 mg (TYLENOL) 1,000 mg, oral, Once, On Wed01/26/23 at 1030, For 1 dose, Pre-Op Given 01/26/2023 10:32 AM TOOL DISPATCHER 1,000 mg acetaminophen tablet 1,000 mg (TYLENOL) 1,000 mg, oral, Every 6 hours PRN, mild pain or score 1-3 of 10, Starting on Wed01/26/23 at 1444, not to exceed 4 grams in 24 hours. Given 01/26/2023 4:16 PM TOOL DISPATCHER 1,000 mg aprepitant capsule 40 mg (EMEND) 40 mg, oral, Once, On Wed01/26/23 at 1030, For 1 dose, Pre-Op Given 01/26/2023 10:32 AM TOOL DISPATCHER 40 mg fentaNYL injection 25 mcg (SUBLIMAZE) 25 mcg, intravenous, Every 2 min PRN, For pain 4 or greater (maximum 100 mcg). If max dose of Fentanyl is reached and if pain is greater than 4, discontinue Fentanyl: give Hydromorphone, Starting on Wed01/26/23 at 1336, PACU (only) Given 01/26/2023 1:50 PM TOOL DISPATCHER 25 mcg Given 01/26/2023 1:44 PM TOOL DISPATCHER 25 mcg Given 01/26/2023 1:42 PM TOOL DISPATCHER 25 mcg lactated ringers 20 mL/hr, intravenous, Continuous, Starting on Wed01/26/23 at 1315, PACU & Post-Op Continued from OR 01/26/2023 1:28 PM TOOL DISPATCHER 20 mL/hr 20 mL/hr oxyCODONE IR tablet 10 mg (ROXICODONE) 10 mg, oral, Every 4 hours PRN, severe pain or score 7-10 of 10, Starting on Wed01/26/23 at 1444, Administer if pain is unrelieved by acetaminophen oxyCODONE IR tablet 5 mg (ROXICODONE) 5 mg, oral, Every 4 hours PRN, moderate pain or score 4-6 of 10, Starting on Wed01/26/23 at 1444, Administer if pain is unrelieved by acetaminophen oxyCODONE IR tablet 5 mg (ROXICODONE) 5 mg, oral, Once as needed, For pain 4 or greater, Starting on Wed01/26/23 at 1336, For 1 dose, PACU (only) Given 01/26/2023 1:46 PM TOOL DISPATCHER 5 mg scopolamine base 1 mg over 3 days 1 patch (TRANSDERM SCOP) 1 patch, transdermal, Administer over 72 Hours, Once, On Wed01/26/23 at 1030, For 1 dose, Pre-Op, Contains 1.5 mg to deliver 1 mg/72 hours. Medication Applied 01/26/2023 10:32 AM TOOL DISPATCHER 1 patch Behind Left Ear documented in this encounter Active and Recently Administered Medications Times are shown in TOOL DISPATCHER. Scheduled Medication Order 01/24/2023 01/25/2023 01/26/2023 acetaminophen tablet 1,000 mg (TYLENOL) (COMPLETED) 1,000 mg, oral, Once, On 01/26/23 at 1030, For 1 dose, Pre-Op 1032 (Given - Provid er: Talisha Abebe R.N.) aprepitant capsule 40 mg (EMEND) (COMPLETED) 40 mg, oral, Once, On 01/26/23 at 1030, For 1 dose, Pre-Op 1032 (Given - Provid er: Talisha Abebe R.N.) ceFAZolin injection 3,000 mg (ANCEF) (COMPLETED) 3,000 mg (25 mg/kg ? 120 kg Dosing weight), intravenous, Once, On 01/26/23 at 1045, For 1 dose, Intra-Op, Preoperatively within 1 hour prior to surgical incision If needed, reconstitute vial per package insert instructions. See IVAG for administration guidelines. , Drug Monitoring Program: Pharmacist to adjust medication dosing based on indication and drug clearance factors., Indications: Prophylaxis, surgical 1115 (Given - Provid er: Leigh Pérez R.N.) heparin (porcine) injection 7,500 Units (COMPLETED) 7,500 Units, subcutaneous, Once, On 01/26/23 at 1045, For 1 dose, Intra-Op, Administer prior to induction of anesthesia. 1132 (Given - Provid er: Leigh Pérez R.N.) scopolamine base 1 mg over 3 days 1 patch (TRANSDERM SCOP) (CANCELED) 1 patch, transdermal, Administer over 72 Hours, Once, On 01/26/23 at 1030, For 1 dose, Pre-Op, Contains 1.5 mg to deliver 1 mg/72 hours. 1032 (Medication Christiano lied - Provider: Talisha Abebe R.N.)1648 (Due: Medication Removed - Provider: Discharge Provider, Automatic - Comment: Time automatically adjusted from order being discontinued) Continuous Medication Order 01/24/2023 01/25/2023 01/26/2023 lactated ringers 20 mL/hr, intravenous, Continuous, Starting on Wed01/26/23 at 1315, PACU & Post-Op 1328 (Continued from OR - Provider: Hafsa Grover RChrisN.) lactated ringers 40 mL/hr, intravenous, Continuous, Starting on Wed01/26/23 at 1445 1445 (Due) PRN Medication Order 01/24/2023 01/25/2023 01/26/2023 acetaminophen tablet 1,000 mg (TYLENOL) 1,000 mg, oral, Every 6 hours PRN, mild pain or score 1-3 of 10, Starting on Wed01/26/23 at 1444, not to exceed 4 grams in 24 hours. 1616 (Given - Provid er: Nellie Booth R.N.) bupivacaine-EPINEPHrine (PF) 0.25 %-1:200,000 injection (MARCAINE w/EPI) (CANCELED) As needed, Starting on Wed01/26/23 at 1258, Intra-Op 1258 (Given - Provid er: Teresa Ly M.D.) dexAMETHasone injection 4 mg (DECADRON) 4 mg, intravenous, Once as needed, nausea, vomiting, Starting on Wed01/26/23 at 1444, For 1 dose, Give only if NOT given during the pre or intraoperative period. If ondansetron ordered, give dexamethasone with first dose of ondansetron. fentaNYL injection 25 mcg (SUBLIMAZE) (CANCELED) 25 mcg, intravenous, Every 2 min PRN, For pain 4 or greater (maximum 100 mcg). If max dose of Fentanyl is reached and if pain is greater than 4, discontinue Fentanyl: give Hydromorphone, Starting on Wed01/26/23 at 1336, PACU (only) 1342 (Given - Provid er: Hafsa Grover R.N.)1344 (Given - Provider: Hafsa Grover RChrisN.)1350 (Given - Provider: Hafsa Grover R.N.) haloperidol lactate injection 1 mg (HALDOL) 1 mg, intravenous, Every 6 hours PRN, nausea, vomiting, Starting on Wed01/26/23 at 1444, For 48 hours, Total of 3 doses in 24 hour period. RASS must be -2 or higher to administer. Reassess for nausea or vomiting after at least 10 minutes. If nausea or vomiting persists administer next ordered antiemetic medications (order for antiemetic medication administration ondansetron then haloperidol then promethazine) HYDROmorphone (PF) injection 0.2 mg (DILAUDID) 0.2 mg, intravenous, Every 2 hour PRN, for breakthrough pain, Starting on Wed01/26/23 at 1444, Unrelieved 30 minutes after PRN oral pain medication is used; if unable to take oral pain medication; or if pain is greater than or equal to 7, use instead of oral pain medication. naloxone injection 0.2 mg (NARCAN) 0.2 mg, intravenous, As needed, respiratory depression, Starting on Wed01/26/23 at 1444, For respiratory rate less than 8 breaths per minute or RASS score of -3, -4, -5. Apply oxygen to keep oxygen saturations greater than 90% and notify service. ondansetron (PF) injection 4 mg (ZOFRAN) 4 mg, intravenous, Every 6 hours PRN, nausea, vomiting, Starting on Wed01/26/23 at 1444, For 48 hours, Reassess for nausea or vomiting after at least 10 minutes. If nausea or vomiting persists administer next ordered antiemetic medications (order for antiemetic medication administration ondansetron then droperidol then promethazine). oxyCODONE IR tablet 10 mg (ROXICODONE)(Linked Group 1) 10 mg, oral, Every 4 hours PRN, severe pain or score 7-10 of 10, Starting on Wed01/26/23 at 1444, Administer if pain is unrelieved by acetaminophen oxyCODONE IR tablet 5 mg (ROXICODONE)(Linked Group 1) 5 mg, oral, Every 4 hours PRN, moderate pain or score 4-6 of 10, Starting on Wed01/26/23 at 1444, Administer if pain is unrelieved by acetaminophen oxyCODONE IR tablet 5 mg (ROXICODONE) (COMPLETED) 5 mg, oral, Once as needed, For pain 4 or greater, Starting on Wed01/26/23 at 1336, For 1 dose, PACU (only) 1346 (Given - Provid er: Hafsa R Collopy, R.N.) promethazine injection 6.25 mg (PHENERGAN) 6.25 mg, intravenous, Every 6 hours PRN, nausea, vomiting, Starting on Wed01/26/23 at 1444, For 48 hours, RASS must be -2 or higher to administer. Reassess for nausea/vomiting after at least 10 minutes. If nausea or vomiting persists administer next ordered antiemetic medications (order for antiemetic medication administration ondansetron then droperidol then promethazine). Linked Groups Order Group 1: oxyCODONE IR tablet 5 mg (ROXICODONE)Jump to med 5 mg, oral, Every 4 hours PRN, moderate pain or score 4-6 of 10, Starting on Wed01/26/23 at 1444, Administer if pain is unrelieved by acetaminophen Or oxyCODONE IR tablet 10 mg (ROXICODONE)Jump to med 10 mg, oral, Every 4 hours PRN, severe pain or score 7-10 of 10, Starting on Wed01/26/23 at 1444, Administer if pain is unrelieved by acetaminophen documented in this encounter
--- OUTSIDE RECORDS SUMMARY | 2023-12-01 06:35 | XMS_ITS | Encounter Summary ---
Author Name Unknown Organization [facility] Address [address] [place] [address] Care Team Providers Care Car Jockey Name Role Phone Unavailable Primary Care Provider Unavailabl e Reason for Visit * Auth/Cert (Routine) Specialty Diagnoses / Procedures Referred By Jazz xiao Referred To Contact Diagnoses Other Ovarian Cyst Left Side Other Ovarian Cyst Left Side [N83.292] Procedures KS LAPAROSCOPY W RMVL ADNEXA OPERATIVE LAPAROSCOPY LAPAROSCOPIC SALPINGO-OOPHORECTOMY Referral ID Status Reason Start Date Expiration Date Visits Re quested Visits Authorized [id number] 1 1 Encounter Details Date Type Department Care Team (Late st Contact Info) Description 01/26/2023 10:17 AM LEATHER SKINNER - 01/26/2023 1:46 PM LEATHER SKINNER Surgery [facility] OR [address] [place] [address] Cele Bach M.D. [address] [place] [address] OPERATIVE LAPAROSCOPY. Social History Tobacco Use Types Packs/Day Years [...] declined 10/30/2022 How often do you attend mormonism or islam serv ices? Patient declined 10/30/2022 Do you belong to any clubs o r organizations such as mormonism groups, unions, fraternal or athletic groups, or [...] and heating? Not hard at all 10/30/2022 [facility] [place] of Occupat ional Health - Occupational Stress [...] place to sleep or slept in a mcc (including now)? Patient refused 10/30/2022 Nutrition Answer [...] Sex Assigned at Female 12/09/2018 8:53 AM LEATHER SKINNER Gender Identity Female 12/09/2018 8:53 AM LEATHER SKINNER Sexual Orientation Straight 12/09/2018 8: 53 AM LEATHER SKINNER documented as of this encounter Last Filed Vital Signs Vital Sign Reading Time Taken Comments Blood Pressure 145/110 01/26/2023 1:45 PM LEATHER SKINNER Pulse 70 01/26/2023 1:45 PM LEATHER SKINNER Temperature 36.5 ??C (97.7 ??F) 01/26/2023 1:30 PM CS T Respiratory Rate 19 01/26/2023 1:45 PM LEATHER SKINNER Oxygen Saturation 92% 01/26/2023 1:45 PM LEATHER SKINNER Inhaled Oxygen Concentration - - Weight 120 kg (265 lb 6.9 oz) 01/26/2023 9:08 AM LEATHER SKINNER Height 161 cm (5' 3.39) 01/26/2023 9:08 AM LEATHER SKINNER Body Mass Index 46.45 01/26/2023 9:08 AM LEATHER SKINNER documented in this encounter Discharge Instructions * Attachments The following attachments cannot be sent through Care Everywhere. * Your Scopolamine Patch ([place]ese) documented in this encounter Medications at Time [...] recovery in stable condition. Cele Bach M.D. HER SKINNER documented in this encounter Plan of Treatment Not on file documented as of this encounter Procedures Procedure Name Priority Date/Time Associated Diagnosis Comments ADULT OXYGEN THERAPY Routine 01/26/2023 1:37 PM LEATHER SKINNER SURGICAL PATHOLOGY, FROZEN LAB Routine 01/26/2023 12:20 PM LEATHER SKINNER Other Ovarian Cyst Left Side LAPAROSCOPIC SALPINGO-OOPHORECTOMY 01/26/2023 10:24 AM LEATHER SKINNER Other Ovarian Cyst Left Side OPERATIVE LAPAROSCOPY 01/26/2023 10:24 AM LEATHER SKINNER Other Ovarian Cyst Left Side documented in this encounter Results * Surgical Pathology, Frozen Lab (01/26/2023 12:20 PM LEATHER SKINNER) 01/28/2023 2:24 PM LEATHER SKINNER METH Participated in the Interpretation Jeanette Bolaños M.D. -Pathology Fellow Tim Manley -Pathology Resident 01/28/2023 2:24 PM LEATHER SKINNER METH Report electronically signed by Annette Kerr M.D. I verify that I have examined all relevant slides/materi als for the specimen(s) and rendered or confirmed the diagnosis. 01/28/2023 2:24 PM LEATHER SKINNER METH Frozen Intraoperative Report A. ??Fallopian tube and ovary, left, salpingo-ooph orectomy: Serous cystadenofibr vanna. ??Paratubal cyst. ??Benign fallopian tube. B. ??Fallopian tube and ovary, right, salpingo-ooph orectomy: Serous cystadenofibr vanna. ??Benign fallopian tube. Signed by Annette Kerr M.D. 01/26/2023 3:55 PM 01/28/2023 2:24 PM LEATHER SKINNER METH Gross Description A. ??Received fresh labeled left fallopian tube and left ovary is a 24.8 gram, 4 x 2 x 1.0 cm ovary with 4.5 x 0.6 cm fallopian tube. ??The ovary has a smooth outer surface and solid cut surface. ??The fallopian tube has multiple paratubal cysts. ??Representat toni tissue submitted for frozen and permanent sections. ??Grossed by Neftali Chapa, SREEDHAR([facility]). B. ??Received fresh labeled right fallopian tube and right ovary is a 14.3 gram, 2.9 x 2.6 x 2.2 cm ovary with 7.2 x 0.8 cm fallopian tube. ??The ovary has a smooth outer surface and cystic/calcif ied cut surface. ??The fallopian tube has a 0.3 cm paratubal cyst. ??Representat toni tissue submitted for frozen and permanent sections. ??Grossed by Nicole Waddell M.S., P.A.([facility]). 01/28/2023 2:24 PM LEATHER SKINNER METH Block Summary A Left fallopian tube and left ovary A1 Left ovary -frozen A2 Left fallopian tube 1 -frozen A3 Left fallopian tube 2 -frozen A4 Left fallopian paratubal cyst -frozen B Right fallopian tube and right ovary B1 Right ovary - frozen B2 Right fallopian tube - frozen B3 Right fimbria - frozen 01/28/2023 2:24 PM LEATHER SKINNER METH Interpretation FINAL DIAGNOSIS A. ??Fallopian tube and ovary, left, salpingo-ooph orectomy: Hyalinized fibroma. ??Paratubal cyst. ??Benign fallopian tube. B. ??Fallopian tube and ovary, right, salpingo-ooph orectomy: Serous cystadenofibr vanna. ??Benign fallopian tube. 01/28/2023 2:24 PM LEATHER SKINNER METH Tissue (Ovary, Left) 01/26/2023 12:20 PM LEATHER SKINNER Tissue (Ovary, Right) 01/26/2023 12:40 PM LEATHER SKINNER Cele Bach M.D. LAB [place] [address], [facility] [place] [address] documented in this encounter Visit Diagnoses Diagnosis Other Ovarian Cyst Left Side- Primary Other Ovarian Cyst Left Side documented in this encounter Admitting Diagnoses Diagnosis Other Ovarian Cyst Left Side documented in this encounter Administered Medications Inactive Administered Medications - up to 3 most recent administrations Medication Order MAR Action Action Date Dose Rate Site acetaminophen tablet 1,000 mg (TYLENOL) 1,000 mg, oral, Once, On Wed01/26/23 at 1030, For 1 dose, Pre-Op Given 01/26/2023 10:32 AM LEATHER SKINNER 1,000 mg acetaminophen tablet 1,000 mg (TYLENOL) 1,000 mg, oral, Every 6 hours PRN, mild pain or score 1-3 of 10, Starting on Wed01/26/23 at 1444, not to exceed 4 grams in 24 hours. Given 01/26/2023 4:16 PM LEATHER SKINNER 1,000 mg aprepitant capsule 40 mg (EMEND) 40 mg, oral, Once, On Wed01/26/23 at 1030, For 1 dose, Pre-Op Given 01/26/2023 10:32 AM LEATHER SKINNER 40 mg bupivacaine-EPINEPHrine (PF) 0.25 %-1:200,000 injection (MARCAINE w/EPI) As needed, Starting on Wed01/26/23 at 1258, Intra-Op Given 01/26/2023 12:58 PM LEATHER SKINNER 30 mL Abdominal Tissue fentaNYL injection 25 mcg (SUBLIMAZE) 25 mcg, intravenous, Every 2 min PRN, For pain 4 or greater (maximum 100 mcg). If max dose of Fentanyl is reached and if pain is greater than 4, discontinue Fentanyl: give Hydromorphone, Starting on Wed01/26/23 at 1336, PACU (only) Given 01/26/2023 1:50 PM LEATHER SKINNER 25 mcg Given 01/26/2023 1:44 PM LEATHER SKINNER 25 mcg Given 01/26/2023 1:42 PM LEATHER SKINNER 25 mcg lactated ringers 20 mL/hr, intravenous, Continuous, Starting on Wed01/26/23 at 1315, PACU & Post-Op Continued from OR 01/26/2023 1:28 PM LEATHER SKINNER 20 mL/hr 20 mL/hr oxyCODONE IR tablet [...] dose, PACU (only) Given 01/26/2023 1:46 PM LEATHER SKINNER 5 mg scopolamine base 1 mg over 3 days 1 patch (TRANSDERM SCOP) 1 patch, transdermal, Administer over 72 Hours, Once, On e 01/26/23 at 1030, For 1 dose, Pre-Op, Contains 1.5 mg to deliver 1 mg/72 hours. Medication Applied 01/26/2023 10:32 AM LEATHER SKINNER 1 patch Behind Left Ear documented in this encounter Active and Recently Administered Medications Times are shown in LEATHER SKINNER. Scheduled Medication Order 01/24/2023 01/25/2023 01/26/2023 acetaminophen tablet 1,000 mg (TYLENOL) (COMPLETED) 1,000 mg, oral, Once, On e 01/26/23 at 1030, For 1 dose, Pre-Op 1032 (Given - Provid er: Talisha Abebe R.N.) aprepitant capsule 40 mg (EMEND) (COMPLETED) 40 mg, oral, Once, On Wed01/26/23 at 1030, For 1 dose, Pre-Op 1032 [...] Units (COMPLETED) 7,500 Units, subcutaneous, Once, On e 01/26/23 at 1045, For 1 dose, Intra-Op, Administer prior to induction of anesthesia. 1132 (Given - Provid er: Leigh Pérez R.N.) scopolamine base 1 mg over 3 days 1 patch (TRANSDERM SCOP) (CANCELED) 1 patch, transdermal, Administer over 72 Hours, Once, On e 01/26/23 at 1030, For 1 dose, Pre-Op, [...] Grover R.N.)1344 (Given - Provider: Hafsa Grover R.N.)1350 (Given - Provider: Lois DiazN.) haloperidol lactate injection 1 mg (HALDOL) 1 [...] (only) 1346 (Given - Provid er: Hafsa Grover R.N.) promethazine injection 6.25 mg (PHENERGAN) 6.25 [...]
--- OUTSIDE RECORDS SUMMARY | 2023-12-01 06:35 | XMS_ITS | Encounter Summary ---
Author Name Unknown Organization [facility] Address [address] [place] [address] Care Team Providers Care Salvage Repairer Name Role Phone Unavailable Primary Care Provider Unavailabl e Encounter Details Date Type Department Care Team (Late st Contact Info) Description 01/26/2023 9:25 AM COMPUTER SYSTEMS ENGINEER Ancillary Procedure Department of Gynecology Social History Tobacco Use Types Packs/Day Years [...] declined 10/30/2022 How often do you attend orthodox or faith serv ices? Patient declined 10/30/2022 Do you belong to any clubs o r organizations such as orthodox groups, unions, fraternal or athletic groups, or [...] and heating? Not hard at all 10/30/2022 [facility] of Occupat ional Health - [...] Sex Assigned at Female 12/09/2018 8:53 AM COMPUTER SYSTEMS ENGINEER Gender Identity Female 12/09/2018 8:53 AM COMPUTER SYSTEMS ENGINEER Sexual Orientation Straight 12/09/2018 8: 53 AM COMPUTER SYSTEMS ENGINEER documented as of this encounter Plan of Treatment Not on file documented as of this encounter Procedures Procedure Name Priority Date/Time Associated Diagnosis Comments GYNECOLOGY IMAGE EXAM Routine 01/26/2023 9:25 AM COMPUTER SYSTEMS ENGINEER documented in this encounter Results * LAP-Gynecology Image Exam (01/26/2023 9:25 AM COMPUTER SYSTEMS ENGINEER) Narrative IIMS - 01/26/2023 1:29 PM COMPUTER SYSTEMS ENGINEER This order has been created and auto-finalized to support the import of images acquired without order. The clinical documentation to support these images can be found on the encounter that produced images. Provider Not In System IMG NON RAD IMAGI NG PROCEDURES IIMS NA documented in this encounter Visit Diagnoses Not on filedocumented in this encounter
--- OUTSIDE RECORDS SUMMARY | 2023-12-01 06:35 | XMS_ITS | Encounter Summary ---
Author Name Unknown Organization [facility] Address [address] [place] [address] Care Team Providers Care It Auditor Name Role Phone Unavailable Primary Care Provider Unavailabl e Reason for Visit * Reason Comments Communication Encounter Details Date Type Department Care Team (Late st Contact Info) Description 11/04/2022 Clinical Communication Department of Obstetrics and Gynecology in [place], [place] [address] [place] [address] Prescheduling, Provider Communication Social History Tobacco Use Types Packs/Day Years Used Date Smoking Tobacco: Former Cigarettes Q uit: 02/02/1982 Smokeless Tobacco: Never Alcohol Use Standard Drinks/Week [...] declined 10/30/2022 How often do you attend islam or denominational serv ices? Patient declined 10/30/2022 Do you belong to any clubs o r organizations such as islam groups, unions, fraternal or athletic groups, or [...] and heating? Not hard at all 10/30/2022 [facility] of Occupat ional [facility] - Occupational Stress Questionnaire Answer Date Recorded [...] place to sleep or slept in a assisted (including now)? Patient refused 10/30/2022 Nutrition Answer [...] Sex Assigned at Female 12/09/2018 8:53 AM PEOPLE MANAGER Gender Identity Female 12/09/2018 8:53 AM PEOPLE MANAGER Sexual Orientation Straight 12/09/2018 8: 53 AM PEOPLE MANAGER documented as of this encounter Miscellaneous Notes * Telephone Encounter - Fernanda Riddle Kanu - 11/04/2022 9:52 AM CST Obstetrics and Gynecology - Gynecologic oncology surgery consult (clinic) for Lisset Phoenix [[phone]] (Routine) Request Summary [[id number]] Procedure: Obstetrics and Gynecology - Gynecologic oncology surgery consult (clinic) Status: Needs Scheduling Requested appt date: 11/03/2022 (Approximate) Authorizing: Leah Ervin M.D. [facility] GYNROEI Referral: [id number] (Authorized) Responsible dept: [facility] PURIFICATION OPERATOR HELPER ROEI Expires: 02/02/2024 Priority: Routine Diagnosis: Unspecified Ovarian Cyst Left Side [N83.202] Unspecified Ovarian Cyst Right Side [N83.201] Request Details Triage Status: Triage Priority: Routine Triage Reject Reason: Triage Comments: Task Type: Task Status: Task Due Date: Task Comments: Notes DOS-in triage Order Details Procedure: Obstetrics and Gynecology - Gynecologic oncology surgery consult (clinic) [[id number]] Proc category: Outpatient Referral Orderables Class: Internal Referral Standing status: Future Expires: 02/02/2024 Standing interval: Enc department: Rst Obg Medical Staff Specialist Roei Enc provider: Leah Ervin M.D. Order status: Order date: 11/03/2022 Order user: Nona Schulz R.N. Ordering provider: LEAH ERVIN Expected Date: First Available [1007] Auth provider: LEAH ERVIN Expected Completion Date: 11/03/2022 Ordering Comment: Preference List: [facility] AMB PURIFICATION OPERATOR HELPER GIOVANI CONSULTS (CLINIC) [[id number]] Specimen Type: Specimen Source: ECL Reason for Referral: Order Specific Questions [facility] [[id number]] Indication Other Clinical question: ovarian cyst. Sister with ovarian cancer Pool to Notify on Signing: Request History Action Date and Time User Details Request Created 11/03/2022 15:48 Nona Schulz RYeni Responsible dept: T OBG PURIFICATION OPERATOR HELPER ROEI Notes Edited 11/04/2022 08:53 Chiqui Tee Notes Edited 11/04/2022 09:49 Isatu Booth Workqueue Summary Current Workqueues Entry Current Tab T OBG PURIFICATION OPERATOR HELPER ROEI PRIORITY [5956] 11/03/2022 15:48 Active Details LE MANAGER documented in this encounter Plan of Treatment Not on file documented as of this encounter Visit Diagnoses Not on filedocumented in this encounter
--- OUTSIDE RECORDS SUMMARY | 2023-12-01 06:35 | XMS_ITS | Encounter Summary ---
Author Name Unknown Organization [facility] Address [address] [place] [address] Care Team Providers Care Press Washer Name Role Phone Unavailable Primary Care Provider Unavailabl e Reason for Visit * Reason Comments Med Refill Encounter Details Date Type Department Care Team (Late st Contact Info) Description 03/30/2023 Refill Department of Obstetrics and Gynecology in [place], [place] [address] [place] [address] Jorge Frye M.D. [address] [place] [address] Med Refill Social History Tobacco Use Types [...] declined 10/30/2022 How often do you attend pentecostal or zoroastrianism serv ices? Patient declined 10/30/2022 Do you belong to any clubs o r organizations such as pentecostal groups, unions, fraternal or athletic groups, or [...] and heating? Not hard at all 10/30/2022 [facility] [place] of Occupat ional Health - Occupational Stress [...] place to sleep or slept in a jail (including now)? Patient refused 10/30/2022 Nutrition Answer [...] Sex Assigned at Female 12/09/2018 8:53 AM STRAPPER OPERATOR Gender Identity Female 12/09/2018 8:53 AM STRAPPER OPERATOR Sexual Orientation Straight 12/09/2018 8: 53 AM STRAPPER OPERATOR documented as of this encounter Plan of Treatment Not on file documented as of this encounter Visit Diagnoses Not on filedocumented in this encounter
--- OUTSIDE RECORDS SUMMARY | 2023-12-01 06:35 | XMS_ITS | Encounter Summary ---
Author Name Unknown Organization [facility] Address [address] [place] [address] Care Team Providers Care Wireless Operator Name Role Phone Unavailable Primary Care Provider Unavailabl e Reason for Visit * Reason Comments Med Refill Encounter Details Date Type Department Care Team (Late st Contact Info) Description 06/01/2023 Refill Division of Nephrology and Hypertension in [place], [place] [address] [place] [address] Angel Zhu Jr., D.O. [address] [place] [address] Med Refill Social History Tobacco Use Types [...] declined 10/30/2022 How often do you attend jain or jainism serv ices? Patient declined 10/30/2022 Do you belong to any clubs o r organizations such as jain groups, unions, fraternal or athletic groups, or [...] 10/30/2022 [facility] [place] of Occupat ional Health - Occupational Stress [...] Sex Assigned at Female 12/09/2018 8:53 AM PLATFORM MILL SUPERVISOR Gender Identity Female 12/09/2018 8:53 AM PLATFORM MILL SUPERVISOR Sexual Orientation Straight 12/09/2018 8: 53 AM PLATFORM MILL SUPERVISOR documented as of this encounter Plan of Treatment Not on file documented as of this encounter Visit Diagnoses Diagnosis Hyperparathyroidism (HCC) documented in this encounter
--- OUTSIDE RECORDS SUMMARY | 2023-12-01 06:35 | XMS_ITS | Encounter Summary ---
Author Name Unknown Organization [facility] Address [address] [place] [address] Care Team Providers Care Polisher And Buffer Name Role Phone Unavailable Primary Care Provider Unavailabl e Reason for Visit * Reason Comments Med Refill Encounter Details Date Type Department Care Team (Late st Contact Info) Description 09/01/2023 Refill Division of Nephrology and Hypertension in [place], [place] [address] [place] [address] Agnel Zhu Jr., D.O. [address] [place] [address] Med Refill Social History Tobacco Use Types [...] declined 10/30/2022 How often do you attend sikhism or sabianist serv ices? Patient declined 10/30/2022 Do you belong to any clubs o r organizations such as sikhism groups, unions, fraternal or athletic groups, or [...] and heating? Not hard at all 10/30/2022 [facility] [place] of Occupat ional Health - Occupational Stress [...] place to sleep or slept in a retirement (including now)? Patient refused 10/30/2022 Nutrition Answer [...] Sex Assigned at Female 12/09/2018 8:53 AM BIOMEDICAL ELECTRONICS TECHNICIAN Gender Identity Female 12/09/2018 8:53 AM BIOMEDICAL ELECTRONICS TECHNICIAN Sexual Orientation Straight 12/09/2018 8: 53 AM BIOMEDICAL ELECTRONICS TECHNICIAN documented as of this encounter Plan of Treatment Not on file documented as of this encounter Visit Diagnoses Diagnosis Hyperparathyroidism (HCC) documented in this encounter
--- OUTSIDE RECORDS SUMMARY | 2023-12-01 06:35 | XMS_ITS | Encounter Summary ---
Author Name Unknown Organization [facility] Address [address] [place] [address] Care Team Providers Care Inspector Returned Materials Name Role Phone Unavailable Primary Care Provider Unavailabl e Reason for Visit * Reason Comments Med Refill Encounter Details Date Type Department Care Team (Late st Contact Info) Description 02/07/2023 Refill Division of Nephrology and Hypertension in [place], [place] [address] [place] [address] Angel Zhu Jr., D.O. [address] [place] [address] Med Refill Social History Tobacco Use Types [...] How often do you attend islam or yazidi serv ices? Patient declined 10/30/2022 Do you [...] and heating? Not hard at all 10/30/2022 [facility] [place] of Occupat ional Health - Occupational Stress [...] place to sleep or slept in a fdc (including now)? Patient refused 10/30/2022 Nutrition Answer [...] Sex Assigned at Female 12/09/2018 8:53 AM HYDRO OPERATOR Gender Identity Female 12/09/2018 8:53 AM HYDRO OPERATOR Sexual Orientation Straight 12/09/2018 8: 53 AM HYDRO OPERATOR documented as of this encounter Plan of Treatment Not on file documented as of this encounter Visit Diagnoses Diagnosis Hyperparathyroidism (HCC) documented in this encounter
--- OUTSIDE RECORDS SUMMARY | 2023-12-01 06:35 | XMS_ITS | Encounter Summary ---
Author Name Unknown Organization [facility] Address [address] [place] [address] Care Team Providers Care Sales Representative Advertising Name Role Phone Unavailable Primary Care Provider Unavailabl e Encounter Details Date Type Department Care Team (Late st Contact Info) Description 01/25/2023 Clinical Communication Department of Obstetrics and Gynecology in [place], [place] [address] [place] [address] Traci Lomax S, R.N. [address] [place] [address] Social History Tobacco Use Types Packs/Day Years [...] declined 10/30/2022 How often do you attend caodaism or orthodox serv ices? Patient declined 10/30/2022 Do you belong to any clubs o r organizations such as caodaism groups, unions, fraternal or athletic groups, or [...] and heating? Not hard at all 10/30/2022 [facility] of Occupat ional Health - Occupational Stress [...] Sex Assigned at Female 12/09/2018 8:53 AM SEARCH ADVERTISING STRATEGIST Gender Identity Female 12/09/2018 8:53 AM SEARCH ADVERTISING STRATEGIST Sexual Orientation Straight 12/09/2018 8: 53 AM SEARCH ADVERTISING STRATEGIST documented as of this encounter Miscellaneous Notes * Telephone Encounter - Traci Lomax R.N. - 01/25/2023 4:50 PM CST Rachel called to confirm her surgical date with Dr. Bach tomorrow. I did not see her case on the schedule, but we discussed proceeding with surgery on 01/26 and she has stopped her Eliquis in anticipation of this. I checked with Dr. Bach, who confirmed that we will proceed with surgery as planned tomorrow. I called Rachel back to confirm this and we also rereviewed her preop instructions as per the Checklist for Surgical Patients booklet. CH ADVERTISING STRATEGIST documented in this encounter Plan of Treatment Not on file documented as of this encounter Visit Diagnoses Not on filedocumented in this encounter
--- OUTSIDE RECORDS SUMMARY | 2023-12-01 06:35 | XMS_ITS | Encounter Summary ---
Author Name Unknown Organization [facility] Address [address] [place] [address] Care Team Providers Care Fermenter Helper Name Role Phone Unavailable Primary Care Provider Unavailabl e Reason for Visit * Appointment Request (Routine) - Closed Specialty Diagnoses / Procedures Referred By Jazz t Referred To Contact Nephrology and Hypertension Referral ID Status Reason Start Date Expiration Date Visits Re quested Visits Authorized [id number] Closed 01/28/2023 01/28/2024 1 Encounter Details Date Type Department Care Team (Latest Contact Info) Description 03/15/2023 2:00 PM CDT External Outreach Division of Nephrology and Hypertension in [place], [place] [address] [place] [address] Angel Zhu Jr., D.O. [address] [place] [address] Urolithiasis (Primary Dx); Hypokalemia; Hyperparathyroidism (HCC); Mutation Factor V Leiden Heterozygous (HCC); Leukopenia Social History Tobacco Use Types Packs/Day Years [...] declined 10/30/2022 How often do you attend gnosticist or temple serv ices? Patient declined 10/30/2022 Do you belong to any clubs o r organizations such as gnosticist groups, unions, fraternal or athletic groups, or [...] and heating? Not hard at all 10/30/2022 [facility] - [...] Sex Assigned at Female 12/09/2018 8:53 AM LINOLEUM TILE LAYER Gender Identity Female 12/09/2018 8:53 AM LINOLEUM TILE LAYER Sexual Orientation Straight 12/09/2018 8: 53 AM LINOLEUM TILE LAYER documented as of this encounter Last Filed Vital Signs Vital Sign Reading Time Taken Comments Blood Pressure 122/72 03/15/2023 2:23 PM CDT Pulse 70 03/15/2023 2:23 PM CDT Temperature - - Respiratory Rate - - Oxygen Saturation - - Inhaled Oxygen Concentration - - Weight 116 kg (256 lb 13.4 oz) 03/15/2023 2:23 P M CDT Height 165 cm (5' 4.96) 03/15/2023 2:23 PM CDT Body Mass Index 42.79 03/15/2023 2:23 PM CDT documented in this encounter Progress Notes * Angel Zhu Jr., D.O. - 03/15/2023 2:00 PM CDT Referring Provider: No primary care provider on file. SUBJECTIVE REASON FOR VISIT [facility] Follow-up regards urolithiasis HISTORY OF PRESENT ILLNESS Ms. Phoenix is a 63 y.o. female who presents with a history of factor 5 Leiden deficiency, prior surgically managed hyperparathyroidism, and remote history of obstructive urolithiasis. She is also had a longstanding history of mild leukopenia. We would discontinue her hydrochlorothiazide at our last visit thinking that perhaps this was 1 of the culprits. Additionally, she was troubled by hypokalemia causing intermittent palpitations. She stopped taking the hydrochlorothiazide has not had any consequences from the perspective of flank pain, gravel passage or hematuria. Additionally she has had no further palpitations or muscle cramping. We reviewed her labs today, which unfortunately show that her leukopenia persists. We reviewed her 24 hour urine studies, which show that she does have elevated sodium in her urine, which coincides with her Easter dinner. Her urinary volume was excellent, her urinary calcium level has increased back to previous levels. We note that she has an under suppressed PTH level as well, and discussed this matter additionally. Otherwise she is no constitutional complaints and no other complaints in general, specifically no chest pain no shortness of breath. Past Medical History: Diagnosis Date Anticoagulant Therapy Blood Transfusion No Diagnosis Defect Coagulation (HCC) Dysfunction Thyroid Gallbladder Disorder Gastroesophageal Reflux Disease NOS Hyperlipidemia Mixed Hyperparathyroidism (HCC) Mutation Factor V Leiden Heterozygous (HCC) Polyp Colon 2004 Post Operative Nausea/Vomiting Renal Disease stage 3 Stone Kidney 09/26/21 Thromboembolism NOS right knee Vertigo Current Outpatient Medications: acetaminophen (TYLENOL) 500 mg tablet, Take 1,000 mg by mouth every 6 (six) hours as needed for pain., Disp: , Rfl: atorvastatin (LIPITOR) 40 mg tablet, TAKE ONE TABLET BY MOUTH AT BEDTIME, Disp: 90 tablet, Rfl: 3 calcitRIOL (ROCALTROL) 0.25 mcg capsule, TAKE 1 CAPSULE BY MOUTH EVERY WEDNESDAY, WEDNESDAY AND WEDNESDAY., Disp: 40 capsule, Rfl: 0 cholecalciferol (VITAMIN D3) 50 mcg (2,000 Unit) tablet, Take 2,000 Units by mouth daily. Wednesday, Wednesday, , Wednesday , Disp: , Rfl: cyanocobalamin (VITAMIN B12) 500 mcg SL tablet, Take 1 tablet (500 mcg total) by mouth daily., Disp: , Rfl: 0 Eliquis 5 mg tablet, Take 5 mg by mouth 2 (two) times a day., Disp: , Rfl: enoxaparin (LOVENOX) 40 mg/0.4 mL injection, Inject 0.4 mL (40 mg total) under the skin daily for 3days., Disp: 1.2 mL, Rfl: 0 estradioL (VAGIFEM) 10 mcg vaginal tablet, Insert 1 tablet (10 mcg total) into the vagina 2 (two) times a week., Disp: 24 tablet, Rfl: 3 oxyCODONE (ROXICODONE) 5 mg immediate release tablet, Take 1 tablet (5 mg total) by mouth every 6 (six) hours as needed for pain Indication: Acute Pain. Not relieved by over the counter pain medications., Disp: 10 tablet, Rfl: 0 sennosides-docusate sodium (SENOKOT-S) 8.6-50 mg per tablet, Take 1 tablet by mouth 2 (two) times aday as needed for constipation. While on narcotics., Disp: , Rfl: REVIEW OF SYSTEMS All other systems reviewed and are negative. OBJECTIVE BP 122/72 Pulse 70 Ht 165 cm Wt 116 kg BMI 42.79 kg/m?? PHYSICAL EXAMINATION General: Awake alert oriented HEENT: PATSY, EOMI, Mucous membranes moist, no oral lesions Neck: No Masses, No Bruits Lungs: Clear to ascultation Heart: Regular Rate and Rhythm, No ectopy Murmurs or rubs Abdomen: Soft, Non-tender Extremities: No cyanosis, No clubbing: No edema Neuro: Cranial Nerves intact, Gait is normal, strength grossly normal Skin: no suspicious lesions identified Psychiatric: Normal affect DIAGNOSTICS Note she is supersaturated for calcium phosphate stones, total urinary volume 20 100 cc, urinary calcium level to 166 mg, and PTH 73 on the background of a calcium level of 9.8. ASSESSMENT / PLAN #1 Urolithiasis She appears to be metabolically and surgically inactive. She is under suppressed PTH and subtle hyperparathyroidism, with mild hypercalciuria as a consequence. Going forward: 1. Continue aggressive urine dilution efforts towards a gal a day of liquid intake. 2. Low-sodium diet less than 2500 mg sodium per day 3. We will hold on re-initiation of hydrochlorothiazide 4. She will continue to take a vitamin-D supplement, but no calcium supplements. 5. She will follow a low oxalate diet 6. We will do supersaturation studies at our next visit. #2 Hypokalemia This has resolved #3 Hyperparathyroidism (HCC) Please see above she is under suppressed with a PTH of 73, and a calcium level of 9.8. #4 Mutation Factor V Leiden Heterozygous (HCC) She is on anticoagulation #5 Leukopenia We will check CBC with diff at our next appointment. She is had no immunocompromised type host issues. Total time: 30 minutes Counseling Time: 20 minutes Angel Zhu Jr., D.O. documented in this encounter Plan of Treatment Not on file documented as of this encounter Visit Diagnoses Diagnosis Urolithiasis- Primary Hypokalemia Hyperparathyroidism (HCC) Mutation Factor V Leiden Heterozygous (HCC) Leukopenia documented in this encounter
--- OUTSIDE RECORDS SUMMARY | 2023-12-01 06:35 | XMS_ITS | Encounter Summary ---
Author Name Unknown Organization [facility] Address [address] [place] [address] Care Team Providers Care Exchange Clerk Name Role Phone Unavailable Primary Care Provider Unavailabl e Reason for Visit * Reason Comments Med Refill Encounter Details Date Type Department Care Team (Late st Contact Info) Description 07/08/2023 Refill Department of Obstetrics and Gynecology in [place], [place] [address] [place] [address] Kailey Horn R.N., I.B.C.L.C. Med Refill Social History Tobacco Use Types [...] declined 10/30/2022 How often do you attend religious or christianity serv ices? Patient declined 10/30/2022 Do you belong to any clubs o r organizations such as religious groups, unions, fraternal or athletic groups, or [...] and heating? Not hard at all 10/30/2022 [facility] - Occupational Stress Questionnaire Answer Date Recorded [...] Sex Assigned at Female 12/09/2018 8:53 AM MEDICATION ADMINISTRATION PROFESSIONAL Gender Identity Female 12/09/2018 8:53 AM MEDICATION ADMINISTRATION PROFESSIONAL Sexual Orientation Straight 12/09/2018 8: 53 AM MEDICATION ADMINISTRATION PROFESSIONAL documented as of this encounter Plan of Treatment Not on file documented as of this encounter Visit Diagnoses Not on filedocumented in this encounter
--- OUTSIDE RECORDS SUMMARY | 2023-12-01 06:35 | XMS_ITS | Encounter Summary ---
Author Name Unknown Organization [facility] Address [address] [place] [address] Care Team Providers Care Racker Octave Board Name Role Phone Unavailable Primary Care Provider Unavailabl e Reason for Visit * Appointment Request (Routine) - Closed Specialty Diagnoses / Procedures Referred By Jazz xiao Referred To Contact Nephrology and Hypertension Referral ID Status Reason Start Date Expiration Date Visits Re quested Visits Authorized [id number] Closed 07/15/2023 07/14/2024 1 1 Encounter Details Date Type Department Care Team (Latest Contact Info) Description 08/31/2023 8:00 AM CDT External Outreach Division of Nephrology and Hypertension in [place], [place] [address] [place] [address] Angel Zhu Jr., D.O. [address] [place] [address] Urolithiasis (Primary Dx); Hyperparathyroidism (HCC); Mutation Factor V Leiden Heterozygous (HCC); Elevated Blood Pressure Social History Tobacco Use Types Packs/Day Years [...] declined 10/30/2022 How often do you attend mandaeism or hindu serv ices? Patient declined 10/30/2022 Do you belong to any clubs o r organizations such as mandaeism groups, unions, fraternal or athletic groups, or [...] and heating? Not hard at all 10/30/2022 [facility] - Occupational Stress [...] place to sleep or slept in a [facility] (including now)? Patient refused 10/30/2022 Nutrition Answer [...] Sex Assigned at Female 12/09/2018 8:53 AM VEHICLE PAINTER Gender Identity Female 12/09/2018 8:53 AM VEHICLE PAINTER Sexual Orientation Straight 12/09/2018 8: 53 AM VEHICLE PAINTER documented as of this encounter Last Filed Vital Signs Vital Sign Reading Time Taken Comments Blood Pressure 148/82 08/31/2023 8:11 AM CDT Pulse 71 08/31/2023 8:11 AM CDT Temperature - - Respiratory Rate - - Oxygen Saturation - - Inhaled Oxygen Concentration - - Weight 114 kg (251 lb 15.8 oz) 08/31/2023 8:11 A M CDT Height - - Body Mass Index 41.98 03/15/2023 2:23 PM CDT documented in this encounter Progress Notes * Angel Zhu Jr., D.O. - 08/31/2023 8:00 AM CDT Referring Provider: No primary care provider on file. SUBJECTIVE REASON FOR VISIT [facility] Follow-up regards metabolically and surgically indeterminate urolithiasis with p persistent hyperparathyroidism HISTORY OF PRESENT ILLNESS Ms. Phoenix is a 63 y.o. female who presents with I prior history of parathyroidectomy. She has had no issues with respect to her urolithiasis. We had previously had her on hydrochlorothiazide therapy, and she stopped this. Her urine calcium levels have remained acceptable.-see below. She has had no gravel passage no hematuria no flank pain. We reviewed her 24 hour urine studies whichshow a total volume of 3000 cc, she is still modestly supersaturated for calcium oxalate and calcium phosphate stones. Appreciate her parathyroid hormone level has improved slightly with the vitamin-D supplementation, but still is inappropriately elevated with respect to her serum calcium level of 9.6, and a PTH level 63. Note that today's blood pressure was elevated in clinic. She is not check this at home, and this isthe 1st time that her blood pressure has been elevated. We repeated her blood pressure several times today while she was in her visit. She is not been using any cold or cough preparations, no NSAIDs,her sleep has been excellent. She has had no issues with respect to thrombosis, no complications from her anticoagulation strategy. 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 Past Medical History: Diagnosis Date Anticoagulant Therapy [...] 10 mcg vaginal tablet, Insert 1 tablet into the vagina 2 times a week., Disp: 64 tablet, Rfl: 0 oxyCODONE (ROXICODONE) 5 mg immediate release tablet, [...] systems reviewed and are negative. OBJECTIVE BP 148/82 Pulse 71 Wt 114 kg BMI 41.98 kg/m?? PHYSICAL EXAMINATION General: Awake alert oriented [...] lesions identified Psychiatric: Normal affect DIAGNOSTICS Note 24 hour urine studies, low urinary sodium levels, 24 hour urine calcium levels are acceptable 214 mg, decreased from over 260 mg at our last visit, now off thiazide ASSESSMENT / PLAN #1 Urolithiasis This appears to be metabolically and surgically inactive. Going forward: 1. Urine dilution therapy, with over 3 L of urine output we will continue to be the strategy which bears the most benefit for her 2. Low-sodium diet 3. Continue on the vitamin-D therapy, which will help balance PTH suppression versus hypercalciuria. 4. Continue to avoid high fructose corn syrup beverages 5. Return in 6 months with rescheduled supersaturation. Previously she struggled a bit with the hydrochlorothiazide therapy causing cramping but we may need to go back to this-particularly see the diagnosis below regarding her mildly elevated blood pressure. #2 Hyperparathyroidism (HCC) She still has an under suppressed PTH level, we will continue on the vitamin-D therapy which has helped from this perspective. #3 Mutation Factor V Leiden Heterozygous (HCC) She continues on her anticoagulation. #4 Elevated Blood Pressure As above I believe we are masking her elevated blood pressure with her thiazide therapy previously,I have asked her to get a home blood pressure cuff and measure her blood pressure at least once if not twice or 3 times per week. I have asked her to get 10-15 minutes of walking in every day She is following a good diet currently, asked her to continue to avoid NSAIDs and Garvey 2 inhibitors. Should her blood pressure persistently be above 140 systolic we may need to consider the re-initiation of low-dose thiazide therapy. She does have her annual exam coming up soon with her primary careInternal Medicine team. Total time: 40 minutes Counseling Time: 25 minutes Angel Zhu Jr., D.O. documented in this encounter Plan of Treatment Not on file documented as of this encounter Visit Diagnoses Diagnosis Urolithiasis- Primary Hyperparathyroidism (HCC) Mutation Factor V Leiden Heterozygous (HCC) Elevated Blood Pressure documented in this encounter
--- OUTSIDE RECORDS SUMMARY | 2023-12-01 06:35 | XMS_ITS | Encounter Summary ---
Author Name Unknown Organization [facility] Address [address] [place] [id number] Care Team Providers Care Exchange Floor Manager Name Role Phone Unavailable Primary Care Provider Unavailabl e Reason for Referral * Outpatient (Routine) - Closed Specialty Diagnoses / Procedures Referred By Marlenaac t Referred To Contact Diagnoses Other Ovarian Cyst Left Side Preoperative Exam Procedures ECG 12 Lead Cele Bach M.D. [address] [place] [address] [facility] Referral ID Status Reason Start Date Expiration Date Visits Re quested Visits Authorized [id number] Closed 11/18/2022 11/18/2023 1 1 PAPER HANGER Reason for Visit * Outpatient (Routine) - Closed Specialty Diagnoses / Procedures Referred By Jazz xiao Referred To Contact Obstetrics and Gynecology Diagnoses Unspecified Ovarian Cyst Left Side Unspecified Ovarian Cyst Right Side Jorge Frye M.D. [address] [place] [address] [facility] Referral ID Status Reason Start Date Expiration Date Visits Re quested Visits Authorized [id number] Closed 11/03/2022 11/03/2023 1 1 Encounter Details Date Type Department Care Team (Latest Contact Info) Description 11/18/2022 10:00 AM WALLPAPER HANGER Comprehensive Visit Department of Obstetrics and Gynecology in [place], [place] [address] [place] [phone] Cele Bach M.D. [address] [place] [phone] Mutation Factor V Leiden Heterozygous (HCC) (Primary Dx); Other Ovarian Cyst Left Side; Unspecified Ovarian Cyst Left Side; Unspecified Ovarian Cyst Right Side; Preoperative Exam Social History Tobacco Use Types Packs/Day Years [...] declined 10/30/2022 How often do you attend scientology or yazdanism serv ices? Patient declined 10/30/2022 Do you belong to any clubs o r organizations such as scientology groups, unions, fraternal or athletic groups, or [...] and heating? Not hard at all 10/30/2022 [facility] of Occupat ional Health - Occupational Stress [...] place to sleep or slept in a long-term (including now)? Patient refused 10/30/2022 Nutrition Answer [...] Sex Assigned at Female 12/09/2018 8:53 AM WALLPAPER HANGER Gender Identity Female 12/09/2018 8:53 AM WALLPAPER HANGER Sexual Orientation Straight 12/09/2018 8: 53 AM WALLPAPER HANGER documented as of this encounter Last Filed Vital Signs Vital Sign Reading Time Taken Comments Blood Pressure - - Pulse - - Temperature - - Respiratory Rate - - Oxygen Saturation - - Inhaled Oxygen Concentration - - Weight 120 kg (264 lb 8.8 oz) 11/18/2022 9:40 AM WALLPAPER HANGER Height 166 cm (5' 5.35) 11/18/2022 9:40 AM WALLPAPER HANGER Body Mass Index 43.55 11/18/2022 9:40 AM WALLPAPER HANGER documented in this encounter Consult Notes * Cele Bach M.D. - 11/18/2022 10:00 AM CST SUBJECTIVE REFERRAL SOURCE Jorge Frye M.D. CHIEF COMPLAINT/REASON FOR VISIT Consult HISTORY OF PRESENT CONDITION Chief complaint: Bilateral ovarian cysts Ms. Phoenix is a 62 y.o., who presents in consultation at the request of oJrge Frye M.D. for an opinion regarding removal of her ovarian cysts. The patient has a history of urolithiasis which has been metabolically and surgically inactive. Shehad a CT urogram in September 2021 which was when it was found that she had cystic appearing bilateral ovarian lesions. At that time she met with Dr. Frye who thought the cysts were benign in nature and he scheduled follow-up imaging for one year later. A pelvic ultrasound on 10/26/22 which showed that her left ovarian cyst grew in size from 4.5 cm to 7.7. At her follow-up appointment with he felt the left ovarian cyst was somewhat concerning for a borderline tumor. He recommended surgical removal of her bilateral ovaries. The patient's sister has ovarian cancer and recommended to the patient that she see a gynecologic oncologist for her surgery. Past medical history: - Factor V Leiden deficiency - Hyperparathyroidism - Renal disease - History of DVT behind right knee - GERD Past surgical history: - Bilateral total hip replacements - Parathyroidectomy - 5 sections Social - Had 5 children and 7 grandchildren with number 8 due to be born in December The following portions of the patient's history were reviewed and updated as appropriate: allergies, current medications, family history, medical history, social history, surgical history and problemlist. Past Medical History: Diagnosis Date Anticoagulant Therapy Blood Transfusion No Diagnosis Defect Coagulation (HCC) Dysfunction Thyroid Gallbladder Disorder Gastroesophageal Reflux Disease NOS Hyperlipidemia Mixed Hyperparathyroidism (HCC) Mutation Factor V Leiden Heterozygous (HCC) Polyp Colon 2004 Post Operative Nausea/Vomiting Renal Disease stage 3 Stone Kidney 09/26/21 Thromboembolism NOS right knee Past Surgical History: Procedure Laterality Date ARTHROPLASTY TOTAL HIP Bilateral 2016 SECTION x5 CHOLECYSTECTOMY PARATHYROIDECTOMY - EXPLORATION CENTRAL NECK N/A 02/02/2019 Procedure: PARATHYROIDECTOMY RIGHT INFERIOR, EXPLORATION CENTRAL NECK.; Surgeon: Ondina Rosado M.D.; [facility]: [facility] OR TUBAL LIGATION Social History Socioeconomic History Marital status: Spouse name: Not on file Number of children: Not on file Years of education: Not on file Highest education level: Not on file Occupational History Not on file Tobacco Use Smoking status: Former Packs/day: 0.00 Years: 8.00 Pack years: 0.00 Types: Cigarettes Start date: 07/23/1975 Quit date: 11/22/1982 Years since quittin.0 Smokeless tobacco: Never Substance and Sexual Activity Alcohol use: Yes Comment: maybe 5 times a year Drug use: No Sexual activity: Yes Partners: Male control/protection: Post-menopausal Other Topics Concern Not on file Social History Narrative Not on file Social Determinants of Health Financial Resource Strain: Low Risk Difficulty of Paying Living Expenses: Not hard at all Food Insecurity: Unknown Worried About Running Out of Food in the Last Year: Patient refused Ran Out of Food in the Last Year: Patient refused Transportation Needs: Unknown Lack of Transportation (Medical): Patient refused Lack of Transportation (Non-Medical): Patient refused Physical Activity: Unknown Days of Exercise per Week: 0 days Minutes of Exercise per Session: Patient refused Stress: No Stress Concern Present Feeling of Stress : Not at all Social Connections: Unknown Frequency of Communication with Friends and Family: Patient refused Frequency of Social Gatherings with Friends and Family: Patient refused Attends [employer] Services: Patient refused Active Member of Clubs or Organizations: Yes Attends Club or Organization Meetings: Patient refused Marital Status: Patient refused Intimate Partner Violence: Unknown Fear of Current or Ex-Partner: No Emotionally Abused: Patient refused Physically Abused: Patient refused Sexually Abused: No Housing Stability: Unknown Unable to Pay for Housing in the Last Year: No Number of Places Lived in the Last Year: 1 Unstable Housing in the Last Year: Patient refused MENSTRUAL HISTORY No LMP recorded. Patient is postmenopausal. FAMILY HISTORY Breast, ovarian, colon, or uterine cancer-related family history includes Ovarian cancer in her sister and sister. REVIEW OF SYSTEMS A comprehensive review of systems was negative except as noted in HPI. OBJECTIVE VITAL SIGNS There is no height or weight on file to calculate BMI. ECOG status: 0 PHYSICAL EXAMINATION GYNSURG Exam Amb General: Well appearing, no apparent distress, alert and oriented. Lymph: Neck symmetric without cervical or supraclavicular adenopathy or mass. Psych: Normal affect. Abdomen: Nondistended, soft, nontender, no masses palpated, no ascites, no hepatosplenomegaly. Skin: Warm, dry, no rashes or lesions. Extremities: Bilateral lower extremities without edema or tenderness. Genitourinary Pelvic Examination including: External genitalia are normal in appearance. No lesions noted. Urethral meatus is normal size, location, and appearance. Urethra is negative. Bladder is nontender. No masses noted. Vagina has normal mucosa with physiologic discharge. No lesions noted. Uterus of normal size and mobility. Adnexa with no masses or nodularity noted, limited by body habitus [facility] EXT Hemoglobin Date Value Ref Range Status 06/08/2019 12.9 11.7 - 15.7 g/dL Final EXT Leukocytes Date Value Ref Range Status 06/08/2019 3.6 (L) 4.0 - 11.0 10e9/L Final EXT Platelet Count Date Value Ref Range Status 06/08/2019 191 150 - 450 10e9/L Final EXT Glucose Date Value Ref Range Status 08/08/2020 88 70 - 99 mg/dL Final Comment: Fasting specimen EXT Creatinine, S Date Value Ref Range Status 08/08/2020 1.24 (H) 0.52 - 1.04 mg/dL Final Cancer Ag 125 (CA 125), S Date Value Ref Range Status 10/24/2021 11 <46 U/mL Final Comment: ----ADDITIONAL INFORMATION---- The testing method is an electrochemiluminescence assay manufactured by [employer] and performed on the Radhames system. Values obtained with different assay methods or kits may be different and cannot be used interchangeably. Test results cannot be interpreted as absolute evidence for the presence or absence of malignant disease. Albumin, S Date Value Ref Range Status 12/09/2018 4.2 3.5 - 5.0 g/dL Final IMAGING RESULTS, LAST 7 DAYS - IMPRESSION ONLY Transvaginal ultrasound reviewed from this year as well as 2020, relatively simple left adnexal cyst ASSESSMENT / PLAN Visit diagnosis: #1 Mutation Factor V Leiden Heterozygous (HCC) #2 Other Ovarian Cyst Left Side We discussed with the patient that her cysts seem benign in appearance. I do think its reasonable with a first degree family member having ovarian cancer to proceed with a a bilateral salpingo oophorectomy. In addition the mass has grown. I talked to the patient about the etiology of this mass. This could represent benign, borderline, or malignant disease. We will try to perform the surgery minimally invasively and use frozen section to guide intra-operative decision making including need for staging. All questions answered. We will plan for to schedule surgery in January since the patient will be watching her 2 year old grandchild when her daughter goes into labor in early December. If the patient changes her mind about her surgical date she will let us know. The patient is going to reach out to her provider that prescribes her Eliquis and get recommendations on when to stop her medication before surgery. The patient has declined the performance of a pelvic exam by a medical student for teaching purposes under anesthesia as part of the planned surgical procedure. PATIENT EDUCATION Ready to learn, no apparent learning barriers were identified; learning preferences include listening. Explained diagnosis and treatment plan; patient expressed understanding of the content. INFORMED CONSENT Discussed the risks, benefits, and alternatives of the procedure and of possible blood transfusion.Discussed the necessity of other members of the healthcare team participating in the procedure. Allquestions answered and consent given. I discussed with the patient that in our practice at [facility], we sometimes perform overlapping surgeries, meaning that I will be present for the entire critical portion of the surgery, and that my team members will assist me with the noncritical portions of the procedure. BILLING I personally spent over half of a total 46 minutes face to face with the patient in counseling and discussion and/or coordination of care as described above. Cele Bach M.D. PAPER HANGER documented in this encounter Plan of Treatment Not on file documented as of this encounter Results * ECG 12 Lead (11/18/2022 11:25 AM WALLPAPER HANGER) Ventricular Rate ECG/Min 62 BPM MUSE ME Interval 184 ms MUSE QRSD Interval 94 ms MUSE QT Interval 394 ms MUSE QTC Interval 399 ms MUSE P [place] 66 degrees MUSE R [place] 6 degrees MUSE T Wave [place] 23 degrees MUSE 11/18/2022 11:2 5 AM WALLPAPER HANGER 11/18/2022 11:33 AM WALLPAPER HANGER Impressions MUSE - 11/18/2022 11:33 AM WALLPAPER HANGER Normal sinus rhythm Normal ECG No previous ECGs available Reviewed by CHANDRIKA Arroyo Narrative Procedure Note Leonel Jha M.D. - 11/18/2022 IMPRESSION: Normal sinus rhythm Normal ECG No previous ECGs available Reviewed by CHANDRIKA Arroyo Cele Bach M.D. ECG ORDERABLES MUSE NA documented in this encounter Visit Diagnoses Diagnosis Mutation Factor V Leiden Heterozygous (HCC)- Primary Other Ovarian Cyst Left Side Unspecified Ovarian Cyst Left Side Unspecified Ovarian Cyst Right Side Preoperative Exam documented in this encounter
--- OUTSIDE RECORDS SUMMARY | 2023-12-01 06:36 | XMS_ITS | Referral Summary ---
Author Name Unknown Organization [facility] Address [address] [place] [address] Care Team Providers Care Seasonal Recruiter Name Role Phone Lanette Castro MD Primary Care Provider Allergies Active Allergy Reactions Criticality Noted Date Comments Ibuprofen Other (See Comments) 12/10/2015 Kidney disease Naproxen Other (See Comments) 12/26/2015 Kidney dx Ketorolac 11/25/2015 KIdney disease Medications Medication Sig Dispensed Refills Start Date End Date Status VITAMIN B 12 OR 500mcg daily 0 Active calcitRIOL (ROCALTROL) 0.25 MCG capsule Take 1 capsule (0.25 mcg) by mouth three times a week 90 capsule 1 10/21/2018 Active vitamin D3 (CHOLECALCIFEROL) 1000 units (25 mcg) tablet Take 2 tablets (2,000 Units) by mouth four times a week 100 tablet 3 10/22/2018 Active famotidine (PEPCID) 10 MG tablet Take 10 mg by mouth nightly as needed 0 Active estradiol (ESTRING) 2 MG vaginal ringIndications:Sympt omatic menopausal or female climacteric states Place 1 each vaginally every 3 months 3 each 3 07/04/2020 Active simvastatin (ZOCOR) 40 MG tabletIndications:Hyp erlipidemia LDL goal <130 Take 1 tablet (40 mg) by mouth At Bedtime 90 tablet 3 07/04/2020 Active warfarin ANTICOAGULANT (COUMADIN) 10 MG tabletIndications:Sherri p vein thrombosis (DVT) of lower extremity, unspecified chronicity, unspecified laterality, unspecified vein (H) 10 mg po daily as directed 90 tablet 3 07/04/2020 Active warfarin ANTICOAGULANT (COUMADIN) 2 MG tabletIndications:Sherri p vein thrombosis (DVT) of lower extremity, unspecified chronicity, unspecified laterality, unspecified vein (H) 1 daily or as directed 90 tablet 3 07/04/2020 Active Active Problems Patient Care Coordination No te Formatting of this note migh t be different from the original. [email or web address] Problem Noted Date Diagnosed Date Family history of malignant neoplasm of ovary Osteoporosis without current pathological fracture, unspecified osteoporosis type 04/18/2018 Secondary renal hyperparathyroidism (H24) 2016 CKD (chronic kidney disease) stage 3, GFR 30-59 ml/min 10/25/2016 DVT (deep venous thrombosis) 02/22/2016 Degenerative arthritis of hip 12/10/2015 Morbid obesity 09/08/2015 HYPERLIPIDEMIA LDL GOAL <130 09/21/2010 Factor V Leiden carrier (H24) 04/04/2004 Resolved Problems Problem Noted Date Diagnosed Date Resolved Date Iron deficiency anemia, unspecified 03/18/2016 04/13/2016 Iron deficiency anemia secon arlen to inadequate dietary iron intake 03/18/2016 6 Intestinal malabsorption, unspecified 03/18/2016 04/13/2016 Other joint derangement, not elsewhere classified, pelvic region and thigh 01/30/200801/21 Phlebitis and thrombophlebit is of other deep vessels of lower extremities 04/04/2004 04/22/2012 Immunizations Name Administration Dates Next Due Influenza (IIV3) PF 09/20/2012, 1,11/01/2006, 004 Influenza Vaccine 18-64 (Flublok) 10/21/2018 Influenza Vaccine >6 months,quad, PF 09/2020,10/13/2019,10/07/2017, 016 Influenza Vaccine, 6+MO IM (QUADRIVALENT W/PRESERVATIVES) 09/03/2015 TDAP Vaccine (Adacel) 03/05/2009 Td (Adult), Adsorbed 03/21/1998 Social History Tobacco Use Types Packs/Day Years Used Date Smoking Tobacco: Former Cigarettes Q uit: 11/25/1983 Smokeless Tobacco: Never Comments:quit 1983 Alcohol Use Standard Drinks/Week Comments Yes 0 (1 standard drink = 0.6 oz pur e alcohol) 1 drink every 3 months PHQ-2 Answer Date Recorded PHQ-2 Score 0 07/04/2020 Adolescent Education Answer Date Record ed Getting School Help Needed Not on file 08/14 Sex and Gender Information Value Date Recorded Sex Assigned at Female 06/16/2021 1:42 PM CDT Gender Identity Female 06/16/2021 1:42 PM CDT Sexual Orientation Choose not to disclose 2020 1:42 PM CDT Last Filed Vital Signs Vital Sign Reading Time Taken Comments Blood Pressure 128/78 04/04/2019 3:56 PM CDT Pulse 91 04/04/2019 3:56 PM CDT Temperature 37 ??C (98.6 ??F) 04/04/2019 3:56 PM CDT Respiratory Rate 16 04/04/2019 3:56 PM CDT Oxygen Saturation 95% 04/04/2019 3:56 PM CDT Inhaled Oxygen Concentration - - Weight 122.5 kg (270 lb) 04/04/2019 3:56 PM CDT Height 163.5 cm (5' 4.37) 04/04/2019 3:56 PM CD T Body Mass Index 45.81 04/04/2019 3:56 PM CDT Plan of Treatment Not on file Medical Devices Implanted Type Area Electrical Apprentice Device Identifier Shelf Expiration Date Model / Serial / Lot Imp Head Femoral Strk Biolox Delta Ceramic 36mm -5mm Implanted:Qty: 1 on 12/10/2015 by Angel Gamble MD at [facility] Left: Hip [employer] 10/23/2020 [id number] / / [id number] 132 Degree Hip Stem,#6 Implanted:Qty: 1 on 03/24/2016 by Angel Gamble MD at [facility] Right: Hip CIRILO 12/17/2020 [id number] / / [id number] Advance Directives For more information, please contact: [phone] Latest Code Status on File Code Status Date Activated Date Inactivated Comments Full Code 03/24/2016 5:31 PM 03/27/2016 4:29 PM Code Status History Code Status Date Activated Date Inactivated Comments Full Code 12/10/2015 4:12 PM 12/13/2015 2:13 PM Care Teams Seasonal Recruiter Relationship Specialty Start Date End Date Lanette Castro MD [facility] & [address] [address] PCP - General Internal Medicine 08/19/23
--- OUTSIDE RECORDS SUMMARY | 2023-12-01 06:36 | XMS_ITS | Encounter Summary ---
Author Name Unknown Organization [facility] Address [address] [facility] [address] Care Team Providers Care Correctional Officer Captain Name Role Phone Dawna Rogers MD Primary Care Provider [phone] Dawna Rogers MD Unavailable Dawna Rogers MD Unavailable Dawna Rogers MD Unavailable Lanette Castro MD Primary Care Provider Encounter Details Date Type Department Care Team (Late st Contact Info) Description 11/12/2015 [facility] [address] [place] [address] Angel Gamble MD [facility] [address] [place] [address] Pre-operative laboratory examination (Primary Dx) Social History Tobacco Use Types Packs/Day Years Used Date Smoking Tobacco: Former Smokeless Tobacco: Never Comments:quit 1983 Alcohol Use Standard Drinks/Week Comments Yes 0 (1 standard drink = 0.6 oz pur e alcohol) occasionally Sex and Gender Information Value Date Recorded Sex Assigned at Female 06/16/2021 1:42 PM CDT Gender Identity Female 06/16/2021 1:42 PM CDT Sexual Orientation Choose not to disclose 2020 1:42 PM CDT documented as of this encounter Plan of Treatment Not on file documented as of this encounter Results * Methicillin Resistant Staph Aureus PCR (11/29/2015 11:30 AM REGIONAL CRA) Specimen Description Nares [facility] Methicillin Resist/Sens S. aureus PCR Negative MRSA Negative: SA Negative ??MRSA and Staphylococcus aureus target DNA not detected, presumed negative for MRSA and SA colonization or the number of bacteria present may be below the limit of detection for the assay. FDA approved assay performed using [employer] GeneXpert(R) real-time PCR. [facility] 11/29/2015 11:3 0 AM REGIONAL CRA 11/29/2015 11:48 AM REGIONAL CRA Angel Gamble MD LAB - MICRO GENERAL ORDERABLES [facility] [address] [place] [address], [facility] [address] [place], [place] [id number] [place] [address] documented in this encounter Visit Diagnoses Diagnosis Pre-operative laboratory examination- Primary Pre-procedural laboratory examination documented in this encounter Care Teams Correctional Officer Captain Relationship Specialty Start Date End Date Dawna Rogers MD [address] [address] PCP - General 04/04/04 08/18/23 Dawna Rogers MD [address] [address] PCP - Assigned PCP 09/26/08 01/24/19 Lanette Castro MD [facility] - [address] [address] PCP - General Internal Medicine 08/19/23 Dawna Rogers MD [address] [address] Assigned PCP 08/25/12 11/06/22 Dawna Rogers MD [address] [facility] [address] [place], [place] [id number] Assigned PCP 01/16/23 07/09/23 documented as of this encounter
--- OUTSIDE RECORDS SUMMARY | 2023-12-01 06:36 | XMS_ITS | Encounter Summary ---
Author Name Unknown Organization [place] Address [address] [facility] [place] [address] Care Team Providers Care Facility Practice Specialist Name Role Phone Lanette Castro MD Primary Care Provider Reason for Referral * Diagnostic Imaging Mammo (Routine) - Pending Review Specialty Diagnoses / Procedures Referred By Jazz xiao Referred To Contact Radiology. Diagnoses Visit for screening mammogram Procedures MA Screening Bilateral w/ Tim MA Screen Bilateral w/Tim Lanette Castro MD [address] [address] Referral ID Status Reason Start Date Expiration Date V isits Requested Visits Authorized [id number] Pending Review 08/11/2023 08/10/2024 1 1 Reason for Visit * Diagnostic Imaging Mammo (Routine) - Pending Review Specialty Diagnoses / Procedures Referred By Jazz xiao Referred To Contact Radiology. Diagnoses Visit for screening mammogram Procedures MA Screening Bilateral w/ Tim MA Screen Bilateral w/Tim Lanette Castro MD [facility] [address] [place] [address] Referral ID Status Reason Start Date Expiration Date V isits Requested Visits Authorized [id number] Pending Review 08/11/2023 08/10/2024 1 1 Encounter Details Date Type Department Care Team (Latest Contact Info) Description 08/19/2023 8:16 AM CDT - 08/19/2023 11:59 PM CDT Hospital Encounter [facility] [address], [address] [place] [address] Dawna Rogers MD [address] [place] [address] Visit for screening mammogram Discharge Disposition: Home or Self Care Social [...] not to disclose 2020 1:42 PM CDT COVID-19 Exposure Response Date Recorded In the last 10 days, have yo u been in contact with someone who was confirmed or suspected to have Coronavirus/COVID-19? No / Unsure 08/19/2023 8:13 AM CDT documented as of this encounter Medications at Time of Discharge Medication Sig Dispensed Refills Start Date End Date calcitRIOL (ROCALTROL) 0.25 MCG capsule Take 1 capsule (0.25 mcg) by mouth three times a week 90 capsule 1 10/21/2018 estradiol (ESTRING) 2 MG vaginal ringIndications:Symptoma tic menopausal or female climacteric states Place 1 each vaginally every 3 months 3 each 3 07/04/2020 famotidine (PEPCID) 10 MG tablet Take 10 mg by mouth nightly as needed 0 simvastatin (ZOCOR) 40 MG tabletIndications:Hyperl ipidemia LDL goal <130 Take 1 tablet (40 mg) by mouth At Bedtime 90 tablet 3 07/04/2020 VITAMIN B 12 OR 500mcg daily 0 vitamin D3 (CHOLECALCIFEROL) 1000 units (25 mcg) tablet Take 2 tablets (2,000 Units) by mouth four times a week 100 tablet 3 10/22/2018 warfarin ANTICOAGULANT (COUMADIN) 10 MG tabletIndications:Deep vein thrombosis (DVT) of lower extremity, unspecified chronicity, unspecified laterality, unspecified vein (H) 10 mg po daily as directed 90 tablet 3 07/04/2020 warfarin ANTICOAGULANT (COUMADIN) 2 MG tabletIndications:Deep vein thrombosis (DVT) of lower extremity, unspecified chronicity, unspecified laterality, unspecified vein (H) 1 daily or as directed 90 tablet 3 07/04/2020 documented as of this encounter Plan of Treatment Not on file documented as of this encounter Procedures Procedure Name Priority Date/Time Associated Diagnosis Comments MA SCREENING BILATERAL W/ TIM Routine 08/19/2023 8:42 AM CDT Visit for screening mammogram documented in this encounter Results * MA Screening Bilateral w/ Tim (08/19/2023 8:42 AM CDT) Anatomical Region Laterality Modality Breast Bilateral Mammography Impressions 08/19/2023 3:06 PM CDT IMPRESSION: ACR BI-RADS Category 1: Negative RECOMMENDED FOLLOW-UP: Annual routine screening mammogram The results and recommendations of this examination will be communicated to the patient. Dariusz Mercedes MD Narrative 08/19/2023 3:06 PM CDT BILATERAL FULL FIELD DIGITAL SCREENING MAMMOGRAM WITH TOMOSYNTHESIS Performed on: 08/19/23 Compared to: 06/29/2022, 06/24/2021, and 12/01/2019 Technique: ??This study was evaluated with the assistance of Computer-Aided Detection. ??Breast Tomosynthesis was used in interpretation. Findings: The breasts have scattered areas of fibroglandular density. ?? There is no radiographic evidence of malignancy. Lanette Castro MD IMG MAMMOGRAPHY ORDE RABLES documented in this encounter Visit Diagnoses Diagnosis Visit for screening mammogram Other screening mammogram documented in this encounter Care Teams Facility Practice Specialist Relationship Specialty Start Date End Date Lanette Castro MD [facility] & [address] [address] PCP - General Internal Medicine 08/19/23 documented as of this encounter
--- OUTSIDE RECORDS SUMMARY | 2023-12-01 06:36 | XMS_ITS | Encounter Summary ---
Author Name Unknown Organization [place] Address [address] [facility] [place] [address] Care Team Providers Care Test Boring Crew Chief Name Role Phone Dawna Rogers MD Primary Care Provider [phone] Dawna Rogers MD Unavailable Dawna Rogers MD Unavailable Dawna Rogers MD Unavailable Lanette Castro MD Primary Care Provider [phone] Encounter Details Date Type Department Care Team (Late st Contact Info) Description 03/13/2016 [facility] [address] [place] [address] Angel Gamble MD [facility] [address] [place] [address] Pre-operative laboratory examination (Primary Dx) Social History Tobacco Use Types Packs/Day Years Used Date Smoking Tobacco: Former Cigarettes Q uit: 11/25/1983 Smokeless Tobacco: Never Comments:quit 1983 Alcohol Use Standard Drinks/Week Comments Yes 0 (1 standard drink = 0.6 oz pur e alcohol) 1 drink every 3 months Sex and Gender Information Value Date Recorded Sex Assigned at Female 06/16/2021 1:42 PM CDT Gender Identity Female 06/16/2021 1:42 PM CDT Sexual Orientation Choose not to disclose 2020 1:42 PM CDT documented as of this encounter Plan of Treatment Not on file documented as of this encounter Results * Methicillin Resistant Staph Aureus PCR (03/13/2016 4:00 PM CDT) Specimen Description [facility] Methicillin Resist/Sens S. aureus PCR Negative MRSA Negative: SA Negative ??MRSA and Staphylococcus aureus target DNA not detected, presumed negative for MRSA and SA colonization or the number of bacteria present may be below the limit of detection for the assay. FDA approved assay performed using [employer]bo GeneXpert(R) real-time PCR. [facility] 03/13/2016 4:00 PM CDT 03/13/2016 4:31 PM CDT Angel Gamble MD LAB - MICRO GENERAL ORDERABLES [facility] [address] [place] [address], [facility] [address] [phone] documented in this encounter Visit Diagnoses Diagnosis Pre-operative laboratory examination- Primary Pre-procedural laboratory examination documented in this encounter Care Teams Test Boring Crew Chief Relationship Specialty Start Date End Date Dawna Rogers MD [address] [address] PCP - General 04/04/04 08/18/23 Dawna Rogers MD [address] [address] PCP - Assigned PCP 09/26/08 01/24/19 Lanette Castro MD [facility] - [address] [address] PCP - General Internal Medicine 08/19/23 Dawna Rogers MD [address] [place] [address] Assigned PCP 08/25/12 11/06/22 Dawna Rogers MD [address] [facility] [address] [place] [address] Assigned PCP 01/16/23 07/09/23 documented as of this encounter
--- OUTSIDE RECORDS SUMMARY | 2023-12-01 06:36 | XMS_ITS | Encounter Summary ---
Author Name Unknown Organization [place] Address [address] [facility] [place] [address] Care Team Providers Care Mill Feeder Name Role Phone Dawna Rogers MD Primary Care Provider Dawna Rogers MD Unavailable Dawna Rogers MD Unavailable Dawna Rogers MD Unavailable Lanette Castro MD Primary Care Provider Encounter Details Date Type Department Care Team (Late st Contact Info) Description 05/27/2018 MyC Medical Advice [place] [address] [facility] [address] [place] [address] Dawna Rogers MD [address] [facility] [address] [place] [address] Social History Tobacco Use Types Packs/Day Years [...] Diagnoses Not on filedocumented in this encounter Care Teams Mill Feeder Relationship Specialty Start Date End Date Dawna Rogers MD [address] [place] [address] PCP - General 04/04/04 08/18/23 Dawna Rogers MD [address] [place] [address] PCP - Assigned PCP 09/26/08 01/24/19 Lanette Castro MD [address] [address] PCP - General Internal Medicine 08/19/23 Dawna Rogers MD [address] [place] [address] Assigned PCP 08/25/12 11/06/22 Dawna Rogers MD [address] [place] [address] Assigned PCP 01/16/23 07/09/23 documented as of this encounter
--- OUTSIDE RECORDS SUMMARY | 2023-12-01 06:36 | XMS_ITS | Clinical Summary ---
Author Name Unknown Organization [place] Address [address] [place] [address] Care Team Providers Care Decay Control Operator Name Role Phone Lanette Castro MD Primary [...] migh t be different from the original. [email or web address] Problem Noted Date Diagnosed Date Family history [...] Vaccine (Adacel) 03/05/2009 Td (Adult), Adsorbed 03/21/1998 Family History Medical History Relation Comments Blood Disease Father Factor V disorde r Cerebrovascular Disease Father Hypertension Father Cancer Mother Skin Circulatory Mother PE d/t MVA, Respiratory Mother COPD Blood Disease Sister 3 Factor V disorde r Relation Status Comments Brother 1 Alive Brother 2 Alive Brother 3 Alive Daughter 1 Alive Daughter 2 Alive Father Mother Sister 1 Alive Sister 2 Alive Sister 3 Son 1 Alive Son 2 Alive Son 3 Alive Social History Tobacco Use Types Packs/Day Years [...] 04/04/2019 3:56 PM CDT Plan of Treatment Health Maintenance Due Date Last Done Comments ANNUAL REVIEW OF HM ORDERS 1960 CT COLONOGRAPHY 1960 FIT 1960 FLEX SIG 1960 sDNA (Cologuard) 1960 HIV SCREENING 1974 LUNG CANCER SCREENING 12/26/2016 12/26/2015 RSV VACCINE ( & 60+) (1 - 1-dose 60+ series) 2019 YEARLY PREVENTIVE VISIT 10/21/2019 10/21/20 18, 09/03/2015, 08/03/2014, Additional history exists HEMOGLOBIN 06/08/2020 06/08/2019, 05/0 03/2016, 03/25/2016, Additional history exists ADVANCE CARE PLANNING 04/13/2021 04/13/2016 (Decline d) BMP 08/08/2021 08/08/2020, 03/22, 01/01/2017, Additional history exists LIPID 08/08/2021 08/08/2020, 05/22, 04/04/2018, Additional history exists MICROALBUMIN 08/08/2021 08/08/2020, 08/24, 04/04/2018, Additional history exists COVID-19 Vaccine ( season) 2023 10/29/2022, 10/17/2021, 02/22/2021, Additional history exists INFLUENZA VACCINE (#1) 2023 , 09/02/2021, 08/02/2020, Additional history exists HPV TEST 10/21/2023 10/21/2018, 09/24, 09/03/2015, Additional history exists PAP 10/21/2023 10/21/2018, 08/22, 07/06/2012, Additional history exists PHQ-2 (once per calendar year) 2023 07/04/2020, 04/04/2019, 04/04/2019, Additional history exists MAMMO SCREENING 08/19/2024 08/19/2023, 08/0 06/2022, 06/24/2021, Additional history exists COLONOSCOPY 06/24/2025 06/24/2020, 08/0 01/2020, 01/09/2010 COLORECTAL CANCER SCREENING 06/24/2025 DTAP/TDAP/TD IMMUNIZATION (3 - Td or Tdap) 08/02/2030 08/02/2020, 03/05/2009, 03/21/1998 HEPATITIS C SCREENING Completed 01/01/2017 URINALYSIS Completed 10/21/2018, 09/22, 03/13/2016, Additional history exists ZOSTER IMMUNIZATION Completed 12/04/2021, HPV IMMUNIZATION Aged Out No longer e ligible based on patient's age to complete this topic IPV IMMUNIZATION Aged Out No longer e ligible based on patient's age to complete this topic MENINGITIS IMMUNIZATION Aged Out No l onger eligible based on patient's age to complete this topic Pneumococcal Vaccine: Pediatrics (0 to 5 Years) and At-Risk Patients (6 to 64 Years) Aged Out No longer eligible based on patient's age to complete this topic RSV MONOCLONAL ANTIBODY Aged Out No l onger eligible based on patient's age to complete this topic Medical Devices Implanted Type Area Short Order Fry Cook Device Identifier Shelf Expiration Date Model / Serial / Lot Imp Head Femoral Strk Biolox Delta Ceramic 36mm -5mm Implanted:Qty: 1 on 12/10/2015 by Angel Gamble MD at [facility] Left: Hip CIRILO [employer] 10/23/2020 [id number] / / [id number] 132 Degree Hip Stem,#6 Implanted:Qty: 1 on 03/24/2016 by Angel Gamble MD at [facility] Right: Hip CIRILO 12/17/2020 [id number] / / [id number] Advance Directives For more information, please contact: [phone] Latest Code Status on File Code Status Date Activated Date Inactivated Comments Full Code 03/24/2016 5:31 PM 03/27/2016 4:29 PM Code Status History Code Status Date Activated Date Inactivated Comments Full Code 12/10/2015 4:12 PM 12/13/2015 2:13 PM Care Teams Decay Control Operator Relationship Specialty Start Date End Date Lanette Castro MD [facility] & [address] [address] PCP - General Internal Medicine 08/19/23
--- OUTSIDE RECORDS SUMMARY | 2023-12-01 06:36 | XMS_ITS | Clinical Summary ---
Author Name Unknown Organization [facility] [place] Address [address] [place] [address] Phone Care Team Providers Care Power Tool Repair Technician Name Role Phone Dawna Rogers MD Primary Care Provider Medications Medication Sig Dispensed Refills Start Date End Date Status warfarin (COUMADIN) 5 MG tablet 10 mg daily 0 12/10/2014 Active simvastatin (ZOCOR) 40 MG tablet 1 po QHS 0 12/10/2014 Active estradiol (ESTRING) [address] 1 ring vaginally every 3 months 0 12/10/2014 Active cholecalciferol (VITAMIN D-3) 25 MCG (1000 UT) tablet 2 tablets by mouth daily 0 12/10/2014 Active warfarin (COUMADIN) 2 MG tablet 1 po qday 0 10/14/2015 Active calcitriol (ROCALTROL) 0.25 MCG capsule 1 tablet on M, W, F 3 04/25/2018 Activ e Active Problems Problem Noted Date Diagnosed Date Secondary hyperparathyroidism of renal origin Chronic kidney disease, stage 3 (moderate) 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 current use of non-steroidal anti-infl ammatories 12/19/2014 Hydronephrosis 12/19/2014 Family History Medical History Relation Comments Kidney stone Relative Hypertensive disorder Sibling Relation Status Comments Relative Sibling Social History Tobacco Use Types Packs/Day Years Used Date Smoking Tobacco: Never Sex and Gender Information Value Date Recorded Sex Assigned at Not on file Gender Identity Not on file Sexual Orientation Not on file Last Filed Vital Signs Vital Sign Reading Time Taken Comments Blood Pressure 125/77 12/24/2017 12:01 AM WAREHOUSE INCENTIVE SELECTOR Sitting, Left Pulse 66 12/24/2017 12:01 AM WAREHOUSE INCENTIVE SELECTOR Brachial Temperature 36.9 ??C (98.4 ??F) 10/01/2016 1 2:01 AM WAREHOUSE INCENTIVE SELECTOR Respiratory Rate - - Oxygen Saturation - - Inhaled Oxygen Concentration - - Weight 120 kg (265 lb 8 oz) 12/24/2017 12:01 AM WAREHOUSE INCENTIVE SELECTOR Height 165.1 cm (5' 5) 12/24/2017 12:0 1 AM WAREHOUSE INCENTIVE SELECTOR Body Mass Index 44.18 12/24/2017 12:01 AM WAREHOUSE INCENTIVE SELECTOR Plan of Treatment Not on file Insurance Payer Benefit Plan / Group Subscriber ID Effective Dates Phone Address Type PM INTERFACED INSURANCE PM INTERFACED INSURANCE - OPEN 2014-11/21 [address] [address] [place] [address] Care Teams Power Tool Repair Technician Relationship Specialty Start Date End Date Dawna Rogers MD [address] [facility] [address] [place] [address] PCP - General 07/16/21
--- OUTSIDE RECORDS SUMMARY | 2023-12-01 06:36 | XMS_ITS | Encounter Summary ---
Author Name Unknown Organization [place] Address [facility] [place] [address] Care Team Providers Care Varitype Operator Name Role Phone Lanette Castro MD Primary Care Provider [phone] Encounter Details Date Type Department Care Team (Latest Contact Info) Description 08/19/2023 Travel Social History Tobacco Use Types Packs/Day Years [...] AM CDT documented as of this encounter Plan of Treatment Not on file documented as of this encounter Visit Diagnoses Not on filedocumented in this encounter Care Teams Varitype Operator Relationship Specialty Start Date End Date Lanette Castro MD [facility] & [address] [address] PCP - General Internal Medicine 08/19/23 documented as of this encounter
--- OUTSIDE RECORDS SUMMARY | 2023-12-01 06:36 | XMS_ITS | Encounter Summary ---
Author Name Unknown Organization [place] Address [address] [facility] [place] [address] Care Team Providers Care Rn Labor And Delivery Name Role Phone Dawna Rogers MD Primary Care Provider [phone] Dawna Rogers MD Unavailable Dawna Rogers MD Unavailable Lanette Castro MD Primary Care Provider Encounter Details Date Type Department Care Team (Late st Contact Info) Description 03/15/2019 MyC Medical Advice [address] [place] [address] Martina Warren RN Social History Tobacco Use Types Packs/Day Years Used Date Smoking Tobacco: Former Cigarettes Q uit: 11/25/1983 Smokeless Tobacco: Never Comments:quit 1983 Alcohol Use Standard Drinks/Week Comments Yes 0 (1 standard drink = 0.6 oz pur e alcohol) 1 drink every 3 months PHQ-2 Answer Date Recorded PHQ-2 Score 0 11/29/2018 Sex and Gender Information Value Date Recorded Sex Assigned at Female 06/16/2021 1:42 PM CDT Gender Identity Female 06/16/2021 1:42 PM CDT Sexual Orientation Choose not to disclose 2020 1:42 PM CDT documented as of this encounter Plan of Treatment Not on file documented as of this encounter Visit Diagnoses Not on filedocumented in this encounter Care Teams Rn Labor And Delivery Relationship Specialty Start Date End Date Dawna Rogers MD [address] [address] PCP - General 04/04/04 08/18/23 Lanette Castro MD [facility] & [address] [address] PCP - General Internal Medicine 08/19/23 Dawna Rogers MD [address] [address] Assigned PCP 08/25/12 11/06/22 Dawna Rogers MD [address] [address] Assigned PCP 01/16/23 07/09/23 documented as of this encounter
--- OUTSIDE RECORDS SUMMARY | 2023-12-01 06:36 | XMS_ITS | Encounter Summary ---
Author Name Unknown Organization [place] Address [address] [facility] [place] [address] Care Team Providers Care Seater Grinder Name Role Phone Dawna Rogers MD Primary Care Provider [phone] Dawna Rogers MD Unavailable Dawna Rogers MD Unavailable Dawna Rogers MD Unavailable Lanette Castro MD Primary Care Provider [phone] Reason for Visit * Reason Onset Date Comments Outreach 03/30/2017 [facility] ATT 1 Encounter Details Date Type Department Care Team (Late st Contact Info) Description 03/30/[address] [place] [address] Dawna Rogers MD [address] [facility] [address] [place] [address] Outreach ([facility] ATT 1) Social History Tobacco Use Types Packs/Day Years [...] PM CDT documented as of this encounter Miscellaneous Notes * Telephone Encounter - Mary Grace Jovana - 03/30/2017 9:14 AM CDT 03/30/2017 Call Regarding Preventive Health Screening Colonoscopy Attempt 1 Message on voicemail Comments: Outreach Roster Clerk KV documented in this encounter Plan of Treatment Not on file documented as of this encounter Visit Diagnoses Not on filedocumented in this encounter Care Teams Seater Grinder Relationship Specialty Start Date End Date Dawna Rogers MD [address] [place] [address] PCP - General 04/04/04 08/18/23 Dawna Rogers MD [address] [place] [address] PCP - Assigned PCP 09/26/08 01/24/19 Lanette Castro MD [facility] & [address] [address] PCP - General Internal Medicine 08/19/23 Dawna Rogers MD [address] [place] [address] Assigned PCP 08/25/12 11/06/22 Dawna Rogers MD [address] [place] [address] Assigned PCP 01/16/23 07/09/23 documented as of this encounter
== END 2023-11-29 10:11 | disposition home or self-care (01) ==
LOC: NFLDREF 12-01 06:33
PROVIDERS: PCP Internal Medicine; Referring Provider Internal Medicine; Visit Provider Internal Medicine
DX: I10 Essential (primary) hypertension (principal)
CPT/HCPCS: 80048

== ENCOUNTER 2024-01-27 12:48 | Outpatient (CLI) | payer MEDICARE, BC, SELFPAY ==
--- NOTE | 2024-01-27 13:00 | XR_ITS ---
Patient: MICHELE WALDRON Facility:?[facility] Patient ID:?[id number] Site Patient ID:?[id number] Site :?[id number] Study:?DEXA-Bone Density -01/27/2024 2:50:47 PM Ordering Physician:TREVOR Final Report: DXA BONE MINERAL DENSITY STUDY Current height (in): 65.0. Weight (lb): 250.0. Menopause age: 64. Ethnicity: White. 1. Have you had a previous hip or vertebral fracture? No. 2. Have you had any fractures during your adult life which did not result from significant trauma (e.g., auto accident)? No. 3. Did either of your parents have a hip fracture? No. 4. Do you smoke? No. 5. Have you ever taken Glucocorticoids? No. 6. Do you have rheumatoid arthritis? No. 7. Do you have secondary osteoporosis? No. 8. Do you drink 3 or more alcoholic drinks per day? No. 9. Are you being treated for osteoporosis? No. 10. Have you ever taken any of the following medications: Yes, Vitamin D. 11. Do you have any of the following medical conditions: Yes, Hyperparathyroidism. 12. What was your maximum height (inches)? 65.5. 13. Do you perform weight bearing exercise regularly? No. 14. Do you regularly consume dairy products? No. 15. Do you drink caffeinated beverages? Yes. 16. At what age did your period start? 11. 17. Are you premenopausal? No. 18. How many full term pregnancies have you had? 5. 19. Have you ever missed your period for more than 6 months in a row (not including or menopause)? No. TECHNIQUE: Bone mineral density study was performed using the [facility]. FINDINGS: The results of the study expressed as bone mineral density (BMD) are as follows: Lumbar spine L1 to L4: BMD: 0.936 g/cm2. T-score: -1.0. Z-score: 0.8 . Radius Left 33%: BMD: 0.579 g/cm2. T-score: -1.9 . Z-score: 0.3. IMPRESSION: Osteopenia. Kami Gibbs M.D. Body/Diagnostic Radiologist [email or web address] , DW/Dictated by: Kami Gibbs MD @ 01/28/2024 3:42:00 AM Signed by:?Kami Gibbs MD @01/31/2024 12:09:37 PM (Electronic Signature)
== END 2024-01-27 12:49 | disposition home or self-care (01) ==
LOC: RAD 12:52
PROVIDERS: PCP Internal Medicine; Visit Provider Internal Medicine
DX: M81.0 Age-related osteoporosis without current pathological fracture (principal); M85.88 Other specified disorders of bone density and structure, other site
CPT/HCPCS: 77080

== ENCOUNTER 2024-02-02 08:50 | Outpatient (CLI) | payer MEDICARE, BC, SELFPAY | END 2024-02-02 08:51 | disposition home or self-care (01) | LOC: NFLDREF 02-04 12:15 | PROVIDERS: PCP Internal Medicine; Referring Provider Internal Medicine; Visit Provider Internal Medicine Nephrology | DX: E21.3 Hyperparathyroidism, unspecified (principal); E78.5 Hyperlipidemia, unspecified; N18.30 Chronic kidney disease, stage 3 unspecified; N20.9 Urinary calculus, unspecified | CPT/HCPCS: 80061; 80069; 82043; 82310; 82340; 82436; 82507; 82570; 82728; 83540; 83550; 83735; 83945; 83970; 83986; 84105; 84133; 84300; 84392; 84450; 84460; 84550; 84560 ==

== ENCOUNTER 2025-02-19 08:21 | Outpatient (CLI) | payer MEDICARE, BC, SELFPAY | END 2025-02-19 08:22 | disposition home or self-care (01) | LOC: NFLDREF 22:24 | PROVIDERS: PCP Internal Medicine; Referring Provider Internal Medicine; Visit Provider Internal Medicine Nephrology | DX: I12.9 Hypertensive chronic kidney disease with stage 1 through stage 4 chronic kidney disease, or unspecified chronic kidney disease (principal); N18.30 Chronic kidney disease, stage 3 unspecified; N20.9 Urinary calculus, unspecified; E21.3 Hyperparathyroidism, unspecified; E87.6 Hypokalemia; E78.5 Hyperlipidemia, unspecified; Z13.21 Encounter for screening for nutritional disorder | CPT/HCPCS: 80061; 80069; 82043; 82306; 82340; 82436; 82507; 82570; 83735; 83945; 83970; 83986; 84105; 84133; 84300; 84392; 84450; 84460; 84550; 84560; 87086 ==